=== PATIENT | male | born 1995 | race African-American/Black ===

== ENCOUNTER 2021-01-04 04:49 | Inpatient (IN) | payer SELFPAY ==
[2021-01-04] MEDS ORDERED: Propofol 1,000 MG/100 ML VIAL IV ONE (04:53)
[2021-01-04 05:31] LABS: Actual Bicarbonate (HCO3a) 19.2 mEq/L (22-28); Analyzer IN Cardio ER; Base Excess (BEa) -4.9 mEq/L (-2.0 to +3.0); CO2 Tension 33.2 mmHg (35.0-45.0); Calcium, Ionized (arterial) 1.13 mmol/L (1.12-1.30); Hemoglobin (Hb) 13.4 g/dL (14.0-18.0); O2 Tension (PaO2), arterial 102.3 mmHg (80.0-100.0); Potassium - ABG Lab 3.48 mmol/L (3.70-5.30); Puncture Site LRA; pH, Arterial 7.38 (7.35-7.45)
[2021-01-04] MEDS ORDERED: Dextrose 50% Abboject 50 ML SYRINGE SLOW IVP PRN (05:35)
[2021-01-04] MEDS ORDERED: fentaNYL Citrate/PF 2,000 MCG in Sodium Chloride 0.9% 60 ML IV PRN (05:35)
[2021-01-04] MEDS ORDERED: Dextrose 5% in Water 1,000 ML IV PRN (05:35)
[2021-01-04] MEDS ORDERED: Ondansetron PF 4 MG/2 ML Vial IVP PRN (05:35)
[2021-01-04] MEDS ORDERED: Fentanyl CADD 100 ML IV SCH (05:45)
[2021-01-04] MEDS ORDERED: Midazolam HCl 5 mg/ml Vial ONE (06:00)
[2021-01-04] MEDS ORDERED: Lorazepam 2 MG/ML VIAL ONE ×2 (06:06→07:33)
[2021-01-04 06:22] LABS: #Basophils 0.1 thou/uL (0.0-0.2); #Eosinphils 0.1 thou/uL (0.0-0.7); #Lymphocytes 3.8 thou/uL (1.20-3.40); #Monocytes 0.6 thou/uL (0.11-0.59); #Neutrophils 4.1 thou/uL (1.40-6.50); %Basophils 0.7 % (0.0-1.0); %Eosinophils 0.8 % (0.0-10.0); %Monocytes 7.1 % (0.0-10.0); %Neutrophils 47.4 % (42.0-75.0); Hemoglobin 13.3 g/dL (14.0-18.0); Mean Corpuscular HGB CONC 32.5 g/dL (32.0-36.0); Mean Corpuscular Hemoglobin 28.7 pg (27.0-31.0); Mean Corpuscular Volume 88.4 fL (78.0-98.0); Platelet Count 207 thou/uL (130-400); RBC Distribution Width 12.2 % (11.5-14.5); Red Blood Cell (RBC) Count 4.62 mill/uL (4.70-6.10); White Blood Cell (WBC) Count 8.7 thou/uL (4.8-10.8)
[2021-01-04 06:28] LABS: INR-International Normal Ratio 1.1; PTT 27.8 sec (22.9-36.1); Prothrombin Time 14.3 sec (12.0-14.7)
[2021-01-04 06:46] LABS: ALT (SGPT) 15 U/L (8-55); AST (SGOT) 23 U/L (5-34); Albumin 3.8 g/dL (3.5-5.0); Alkaline Phosphatase 52 U/L (40-110); Anion Gap 17 mmol/L (10-20); BUN (Urea Nitrogen) 9 mg/dL (8.9-20.6); Bilirubin, Total 0.3 mg/dL (0.2-1.2); Calc. Creatinine Clearance 0 mL/min (70-130); Calcium 7.9 mg/dL (7.8-10.44); Carbon Dioxide 19 mmol/L (22-29); Chloride 111 mmol/L (98-107); Globulin 2.5 g/dL (2.4-3.5); Glucose 78 mg/dL (70-105); Potassium 3.5 mmol/L (3.5-5.1); Protein, Total 6.3 g/dL (6.0-8.3); Sodium 143 mmol/L (136-145)
[2021-01-04] MEDS: Ampicillin/Sulbactam 3 GM in Sodium Chloride 0.9% 100 ML IVPB SCH ×3 (08:03→19:32)
[2021-01-04 08:20] LABS: Phosphorus 3.3 mg/dL (2.3-4.7)
[2021-01-04 08:43] LABS: Lactic Acid 3.7 mmol/L (0.5-2.2)
[2021-01-04] MEDS: Famotidine/PF 20 mg/2ml Vial SLOW IVP SCH (09:09)
[2021-01-04] MEDS: Propofol 1,000 MG/100 ML VIAL IV PRN ×4 (09:10→23:49)
[2021-01-04] MEDS ORDERED: Fentanyl 100 MCG/2 ML VIAL ONE (09:26)
[2021-01-04] MEDS ORDERED: Vecuronium 10 MG VIAL ONE (09:27)
[2021-01-04] MEDS ORDERED: Lidocaine 1% w/Epinephrine 1:100K 20 ML VIAL ONE (09:27)
[2021-01-04] MEDS ORDERED: Vecuronium 10 MG VIAL IV SCH (09:45)
[2021-01-04] MEDS ORDERED: Midazolam HCl 2 mg/2 ml Vial FS SCH (09:45)
[2021-01-04] MEDS ORDERED: Fentanyl 100 MCG/2 ML VIAL SLOW IVP SCH (09:45)
[2021-01-04] MEDS ORDERED: Lidocaine 1% w/Epinephrine 1:100K 20 ML VIAL FS SCH (09:45)
[2021-01-04] MEDS: Midazolam HCl 2 mg/2 ml Vial ONE ×2 (10:05→10:24)
[2021-01-04] MEDS ORDERED: carBAMazepine 200 MG TAB PER TUBE SCH (11:00)
[2021-01-04] MEDS ORDERED: Oxymetazoline HCl 0.05% (30 ML BOT) NS SCH (11:15)
[2021-01-04] MEDS ORDERED: Lactated Ringer's 500 ML IV SCH (14:45)
[2021-01-04] MEDS: Lactated Ringer's 1,000 ML IV SCH ×3 (14:57→23:39)
[2021-01-04] MEDS: Lorazepam 2 MG/ML VIAL SLOW IVP PRN ×2 (16:56→22:47)
[2021-01-04] MEDS: carBAMazepine 200 MG TAB PER TUBE SCH (17:28)
[2021-01-04] MEDS: Oxymetazoline HCl 0.05% (30 ML BOT) NS SCH (20:01)
[2021-01-04 20:21] LABS: #Basophils 0.1 thou/uL (0.0-0.2); #Eosinphils 0.2 thou/uL (0.0-0.7); #Lymphocytes 2.1 thou/uL (1.20-3.40); #Monocytes 0.5 thou/uL (0.11-0.59); %Basophils 1.1 % (0.0-1.0); %Eosinophils 2.8 % (0.0-10.0); %Lymphocytes 30.6 % (21.0-51.0); %Monocytes 7.7 % (0.0-10.0); %Neutrophils 57.8 % (42.0-75.0); Hemoglobin 12.7 g/dL (14.0-18.0); Mean Corpuscular HGB CONC 33.7 g/dL (32.0-36.0); Mean Corpuscular Hemoglobin 29.9 pg (27.0-31.0); Mean Corpuscular Volume 88.7 fL (78.0-98.0); Mean Platelet Volume 6.8 fL (7.4-10.4); Platelet Count 182 thou/uL (130-400); RBC Distribution Width 12.4 % (11.5-14.5); Red Blood Cell (RBC) Count 4.25 mill/uL (4.70-6.10); White Blood Cell (WBC) Count 6.9 thou/uL (4.8-10.8)
[2021-01-04] MEDS ORDERED: Propofol BOLUS 1,000 MG/100 ML VIAL IV PRN (20:30)
[2021-01-04 20:37] LABS: Lactic Acid 1.4 mmol/L (0.5-2.2)
[2021-01-04 20:39] LABS: Phosphorus 2.7 mg/dL (2.3-4.7)
[2021-01-04 20:42] LABS: Anion Gap 13 mmol/L (10-20); BUN (Urea Nitrogen) 6 mg/dL (8.9-20.6); Calc. Creatinine Clearance 232 mL/min (70-130); Calcium 7.9 mg/dL (7.8-10.44); Carbon Dioxide 21 mmol/L (22-29); Chloride 112 mmol/L (98-107); Glucose 86 mg/dL (70-105); Magnesium 2.1 mg/dL (1.6-2.6); Potassium 3.8 mmol/L (3.5-5.1); Sodium 142 mmol/L (136-145)
[2021-01-04] MEDS ORDERED: Potassium Phosphate 30 MMOL in Sodium Chloride 0.9% 500 ML IVPB SCH (22:00)
[2021-01-05] MEDS ORDERED: Fentanyl CADD 100 ML ONE (00:30)
[2021-01-05] MEDS: Ampicillin/Sulbactam 3 GM in Sodium Chloride 0.9% 100 ML IVPB SCH ×4 (03:14→20:32)
[2021-01-05 03:56] LABS: #Basophils 0.1 thou/uL (0.0-0.2); #Eosinphils 0.2 thou/uL (0.0-0.7); #Lymphocytes 2.4 thou/uL (1.20-3.40); #Monocytes 0.6 thou/uL (0.11-0.59); #Neutrophils 3.6 thou/uL (1.40-6.50); %Basophils 0.9 % (0.0-1.0); %Eosinophils 3.6 % (0.0-10.0); %Lymphocytes 34.8 % (21.0-51.0); %Monocytes 8.2 % (0.0-10.0); %Neutrophils 52.5 % (42.0-75.0); Hemoglobin 12.6 g/dL (14.0-18.0); Mean Corpuscular HGB CONC 33.1 g/dL (32.0-36.0); Mean Corpuscular Hemoglobin 29.5 pg (27.0-31.0); Mean Corpuscular Volume 89.2 fL (78.0-98.0); Mean Platelet Volume 7.1 fL (7.4-10.4); Platelet Count 188 thou/uL (130-400); RBC Distribution Width 12.5 % (11.5-14.5); Red Blood Cell (RBC) Count 4.26 mill/uL (4.70-6.10); White Blood Cell (WBC) Count 6.8 thou/uL (4.8-10.8)
[2021-01-05 04:07] LABS: Lactic Acid 0.9 mmol/L (0.5-2.2)
[2021-01-05 04:10] LABS: ALT (SGPT) 12 U/L (8-55); AST (SGOT) 18 U/L (5-34); Albumin 3.3 g/dL (3.5-5.0); Alkaline Phosphatase 52 U/L (40-110); Anion Gap 13 mmol/L (10-20); BUN (Urea Nitrogen) 6 mg/dL (8.9-20.6); Bilirubin, Total 0.3 mg/dL (0.2-1.2); Calc. Creatinine Clearance 249 mL/min (70-130); Carbon Dioxide 23 mmol/L (22-29); Chloride 111 mmol/L (98-107); Globulin 2.3 g/dL (2.4-3.5); Glucose 84 mg/dL (70-105); Magnesium 2.1 mg/dL (1.6-2.6); Phosphorus 5.5 mg/dL (2.3-4.7); Potassium 3.9 mmol/L (3.5-5.1); Protein, Total 5.6 g/dL (6.0-8.3); Sodium 143 mmol/L (136-145)
[2021-01-05] MEDS: Lactated Ringer's 1,000 ML IV SCH ×2 (05:51→17:30)
[2021-01-05 06:49] LABS: Actual Bicarbonate (HCO3a) 24.6 mEq/L (22-28); Base Excess (BEa) -1.2 mEq/L (-2.0 to +3.0); CO2 Tension 45.3 mmHg (35.0-45.0); Calcium, Ionized (arterial) 1.17 mmol/L (1.12-1.30); Carboxyhemoglobin (COHb) 0.4 gm% (0.0-3.0); O2 Tension (PaO2), arterial 61.7 mmHg (80.0-100.0); Potassium - ABG Lab 3.71 mmol/L (3.70-5.30); Puncture Site RRA; pH, Arterial 7.35 (7.35-7.45)
[2021-01-05 06:50] LABS: ALV-art Gradient 131.225 mmHg (0-20)
[2021-01-05] MEDS: Famotidine/PF 20 mg/2ml Vial SLOW IVP SCH (07:13)
[2021-01-05] MEDS: carBAMazepine 200 MG TAB PER TUBE SCH ×2 (07:14→16:29)
[2021-01-05] MEDS: Oxymetazoline HCl 0.05% (30 ML BOT) NS SCH ×2 (07:16→20:37)
[2021-01-05] MEDS: Propofol 1,000 MG/100 ML VIAL IV PRN ×2 (08:07→11:10)
[2021-01-06] MEDS: Ampicillin/Sulbactam 3 GM in Sodium Chloride 0.9% 100 ML IVPB SCH ×2 (01:45→08:39)
[2021-01-06] MEDS: Lactated Ringer's 1,000 ML IV SCH (03:04)
[2021-01-06 03:47] LABS: #Basophils 0.1 thou/uL (0.0-0.2); #Eosinphils 0.2 thou/uL (0.0-0.7); #Lymphocytes 2.7 thou/uL (1.20-3.40); #Monocytes 0.7 thou/uL (0.11-0.59); #Neutrophils 5.1 thou/uL (1.40-6.50); %Basophils 0.8 % (0.0-1.0); %Eosinophils 2.6 % (0.0-10.0); %Lymphocytes 31.1 % (21.0-51.0); %Monocytes 7.7 % (0.0-10.0); %Neutrophils 57.8 % (42.0-75.0); Hemoglobin 12.7 g/dL (14.0-18.0); Mean Corpuscular Hemoglobin 29.3 pg (27.0-31.0); Mean Corpuscular Volume 88.7 fL (78.0-98.0); Mean Platelet Volume 7.2 fL (7.4-10.4); Platelet Count 221 thou/uL (130-400); RBC Distribution Width 12.4 % (11.5-14.5); Red Blood Cell (RBC) Count 4.33 mill/uL (4.70-6.10); White Blood Cell (WBC) Count 8.7 thou/uL (4.8-10.8)
[2021-01-06] MEDS: carBAMazepine 200 MG TAB PER TUBE SCH ×2 (08:40→17:56)
[2021-01-06] MEDS: Famotidine/PF 20 mg/2ml Vial SLOW IVP SCH (08:40)
[2021-01-06] MEDS: Oxymetazoline HCl 0.05% (30 ML BOT) NS SCH ×2 (09:01→20:07)
[2021-01-06] MEDS ORDERED: Ibuprofen 100 MG/5 ML UDCUP PO PRN (11:34)
[2021-01-06] MEDS ORDERED: Enoxaparin Sodium 40 MG/0.4 ML SYRINGE SC SCH (15:54)
[2021-01-06] MEDS ORDERED: Chloraseptic Spray 180 ml Bottle PO PRN (21:17)
[2021-01-07 06:00] LABS: #Eosinphils 0.3 thou/uL (0.0-0.7); #Lymphocytes 2.3 thou/uL (1.20-3.40); #Monocytes 0.7 thou/uL (0.11-0.59); #Neutrophils 3.9 thou/uL (1.40-6.50); %Basophils 0.5 % (0.0-1.0); %Eosinophils 4.8 % (0.0-10.0); %Lymphocytes 31.4 % (21.0-51.0); %Monocytes 9.4 % (0.0-10.0); Hemoglobin 12.9 g/dL (14.0-18.0); Mean Corpuscular HGB CONC 32.8 g/dL (32.0-36.0); Mean Corpuscular Hemoglobin 29.1 pg (27.0-31.0); Mean Corpuscular Volume 88.7 fL (78.0-98.0); Mean Platelet Volume 6.9 fL (7.4-10.4); Platelet Count 242 thou/uL (130-400); RBC Distribution Width 12.2 % (11.5-14.5); Red Blood Cell (RBC) Count 4.43 mill/uL (4.70-6.10); White Blood Cell (WBC) Count 7.2 thou/uL (4.8-10.8)
[2021-01-07] MEDS: Oxymetazoline HCl 0.05% (30 ML BOT) NS SCH ×2 (08:31→21:50)
[2021-01-07] MEDS: carBAMazepine 200 MG TAB PER TUBE SCH ×2 (08:31→16:14)
[2021-01-07] MEDS: Enoxaparin Sodium 40 MG/0.4 ML SYRINGE SC SCH (08:31)
[2021-01-07] MEDS: Acetaminophen 650 MG/20.3 ML UDCUP PO PRN (08:58)
[2021-01-07] MEDS: Dexamethasone 4 mg/ml Vial SLOW IVP SCH ×2 (14:37→21:43)
[2021-01-08] MEDS: Dexamethasone 4 mg/ml Vial SLOW IVP SCH ×4 (04:00→20:21)
[2021-01-08] MEDS: Acetaminophen 650 MG/20.3 ML UDCUP PO PRN ×3 (04:08→23:32)
[2021-01-08] MEDS: carBAMazepine 200 MG TAB PER TUBE SCH ×2 (08:34→16:12)
[2021-01-08] MEDS: Enoxaparin Sodium 40 MG/0.4 ML SYRINGE SC SCH (08:34)
[2021-01-08] MEDS: Oxymetazoline HCl 0.05% (30 ML BOT) NS SCH ×2 (08:35→20:21)
[2021-01-08 13:37] VITALS: BMI 34.4
[2021-01-09] MEDS: Dexamethasone 4 mg/ml Vial SLOW IVP SCH ×2 (05:09→09:02)
[2021-01-09] MEDS: carBAMazepine 200 MG TAB PER TUBE SCH ×2 (09:02→17:48)
[2021-01-09] MEDS: Acetaminophen 650 MG/20.3 ML UDCUP PO PRN (09:03)
[2021-01-09] MEDS: Oxymetazoline HCl 0.05% (30 ML BOT) NS SCH ×2 (09:03→21:03)
[2021-01-09] MEDS: Enoxaparin Sodium 40 MG/0.4 ML SYRINGE SC SCH (09:03)
[2021-01-10] MEDS: Acetaminophen 650 MG/20.3 ML UDCUP PO PRN (01:49)
[2021-01-10] MEDS: Enoxaparin Sodium 40 MG/0.4 ML SYRINGE SC SCH (09:32)
[2021-01-10] MEDS: Oxymetazoline HCl 0.05% (30 ML BOT) NS SCH ×2 (09:32→21:32)
[2021-01-10] MEDS: carBAMazepine 200 MG TAB PER TUBE SCH ×2 (09:32→16:20)
[2021-01-11] MEDS: Enoxaparin Sodium 40 MG/0.4 ML SYRINGE SC SCH (08:19)
[2021-01-11] MEDS: Oxymetazoline HCl 0.05% (30 ML BOT) NS SCH ×2 (08:19→20:08)
[2021-01-11] MEDS: carBAMazepine 200 MG TAB PER TUBE SCH ×2 (08:19→17:05)
[2021-01-11] MEDS: Acetaminophen 650 MG/20.3 ML UDCUP PO PRN (08:22)
[2021-01-12] MEDS: carBAMazepine 200 MG TAB PER TUBE SCH (08:37)
[2021-01-12] MEDS: Enoxaparin Sodium 40 MG/0.4 ML SYRINGE SC SCH (08:37)
[2021-01-12] MEDS: Oxymetazoline HCl 0.05% (30 ML BOT) NS SCH (08:37)
[2021-01-12 12:03] VITALS: BP 135/75; TEMP 97.2
== END 2021-01-12 13:49 | DRG 11 ==
LOC: ERS 04:49 → CCU 05:09 → SURG B 01-06 11:42
PROVIDERS: ADMIT Specialist; ATTEND Specialist
PROC: 0B113F4 Bypass Trachea to Cutaneous with Tracheostomy Device, Percutaneous Approach (ICD-10-PCS; principal; 2021-01-04)
PROC: 5A1945Z Respiratory Ventilation, 24-96 Consecutive Hours (ICD-10-PCS; 2021-01-04)
PROC: 0B9F8ZZ Drainage of Right Lower Lung Lobe, Via Natural or Artificial Opening Endoscopic (ICD-10-PCS; 2021-01-06)
PROC: 0CJS8ZZ Inspection of Larynx, Via Natural or Artificial Opening Endoscopic (ICD-10-PCS; 2021-01-06)
DX: S12.8XXA Fracture of other parts of neck, initial encounter (principal); J96.00 Acute respiratory failure, unspecified whether with hypoxia or hypercapnia; R40.2122 Coma scale, eyes open, to pain, at arrival to emergency department; R40.2342 Coma scale, best motor response, flexion withdrawal, at arrival to emergency department; E87.2 Acidosis; Z20.822 Contact with and (suspected) exposure to COVID-19; F20.9 Schizophrenia, unspecified; F31.9 Bipolar disorder, unspecified; E87.6 Hypokalemia; E83.42 Hypomagnesemia; S10.83XA Contusion of other specified part of neck, initial encounter; G40.909 Epilepsy, unspecified, not intractable, without status epilepticus; Z78.1 Physical restraint status; R13.10 Dysphagia, unspecified
CPT/HCPCS: 31624; 36415; 36416; 36600; 71045; 74018; 80053; 82805; 83605; 83735; 84100; 85025; 87070; 87205; 89220; 94002; 94003; 94640; 96365; 96374; 96376; J0295; J1100; J1650; J2060; J2250; J2704; J3010; J3490; J7030; J7620; S0028

== ENCOUNTER 2021-09-21 23:39 | Emergency (ER) | payer OTHER, SELFPAY | END 2021-09-22 00:40 | LOC: ERS 23:39 | DX: Z02.89 Encounter for other administrative examinations (principal) | CPT/HCPCS: 99283 ==

== ENCOUNTER 2021-10-02 18:53 | Emergency (ER) | payer SELFPAY ==
[2021-10-02 19:35] LABS: #Basophils 0.1 thou/uL (0.0-0.2); #Eosinphils 0.1 thou/uL (0.0-0.7); #Lymphocytes 1.8 thou/uL (1.20-3.40); #Monocytes 0.8 thou/uL (0.11-0.59); #Neutrophils 2.8 thou/uL (1.40-6.50); %Basophils 1.7 % (0.0-1.0); %Eosinophils 1.5 % (0.0-10.0); %Monocytes 13.6 % (0.0-10.0); %Neutrophils 51.1 % (42.0-75.0); Hemoglobin 16.2 g/dL (14.0-18.0); Mean Corpuscular HGB CONC 32.2 g/dL (32.0-36.0); Mean Corpuscular Hemoglobin 27.8 pg (27.0-31.0); Mean Corpuscular Volume 86.2 fL (78.0-98.0); Mean Platelet Volume 6.2 fL (7.4-10.4); Platelet Count 332 thou/uL (130-400); RBC Distribution Width 12.2 % (11.5-14.5); Red Blood Cell (RBC) Count 5.85 mill/uL (4.70-6.10); White Blood Cell (WBC) Count 5.5 thou/uL (4.8-10.8)
[2021-10-02 19:55] LABS: ALT (SGPT) 22 U/L (8-55); AST (SGOT) 27 U/L (5-34); Albumin 4.2 g/dL (3.5-5.0); Alkaline Phosphatase 106 U/L (40-110); Anion Gap 12 mmol/L (10-20); BUN (Urea Nitrogen) 9 mg/dL (8.9-20.6); Bilirubin, Total 0.2 mg/dL (0.2-1.2); Calc. Creatinine Clearance 0 mL/min (70-130); Carbon Dioxide 28 mmol/L (22-29); Chloride 103 mmol/L (98-107); Globulin 3.4 g/dL (2.4-3.5); Glucose 107 mg/dL (70-105); Protein, Total 7.6 g/dL (6.0-8.3); Sodium 139 mmol/L (136-145)
[2021-10-02] MEDS ORDERED: Lorazepam 2 MG/ML VIAL ONE (21:04)
== END 2021-10-02 22:04 ==
LOC: ERS 18:53
DX: R56.9 Unspecified convulsions (principal)
CPT/HCPCS: 80053; 80164; 84146; 85025; 96374; J2060

== ENCOUNTER 2022-03-11 07:32 | Emergency (ER) | payer OTHER, SELFPAY ==
[2022-03-11] MEDS ORDERED: Ibuprofen 200 MG TAB ONE (08:35)
[2022-03-11] MEDS ORDERED: Acetaminophen 500 MG TAB ONE (08:35)
== END 2022-03-11 10:00 | disposition home or self-care (01) ==
LOC: ERS 07:32
DX: S80.211A Abrasion, right knee, initial encounter (principal); S80.212A Abrasion, left knee, initial encounter; S50.312A Abrasion of left elbow, initial encounter; S90.512A Abrasion, left ankle, initial encounter; S00.81XA Abrasion of other part of head, initial encounter; V29.9XXA Motorcycle rider (driver) (passenger) injured in unspecified traffic accident, initial encounter

== ENCOUNTER 2023-06-01 10:44 | Inpatient (IN) | payer OTHER, SELFPAY ==
[~2023-06-01 10:44] MED LIST: Iopamidol-370 76% 500 ML MDV (1 ML CHARGE) ONE
[2023-06-01] MEDS ORDERED: Ketorolac Tromethamine 30 MG/ML VIAL ONE (11:38)
[2023-06-01 12:07] LABS: #Eosinphils 0.1 thou/uL (0.0-0.7); #Monocytes 0.7 thou/uL (0.11-0.59); #Neutrophils 1.9 thou/uL (1.40-6.50); %Basophils 0.9 % (0.0-1.0); %Eosinophils 1.6 % (0.0-10.0); %Lymphocytes 36.4 % (21.0-51.0); %Monocytes 15.9 % (0.0-10.0); Mean Corpuscular Hemoglobin 24.9 pg (27.0-31.0); Mean Corpuscular Volume 77.8 fl (78.0-98.0); Mean Platelet Volume 8.9 fL (7.4-10.4); Platelet Count 257 10x3/uL (130-400); RBC Distribution Width 14.4 % (11.5-14.5); Red Blood Cell (RBC) Count 5.22 mill/uL (4.70-6.10); White Blood Cell (WBC) Count 4.3 10x3/uL (4.8-10.8)
[2023-06-01 12:32] LABS: ALT (SGPT) 15 U/L (8-55); AST (SGOT) 53 U/L (5-34); Albumin 4.2 g/dL (3.5-5.0); Alkaline Phosphatase 175 U/L (40-110); Anion Gap 16 mmol/L (10-20); BUN (Urea Nitrogen) 9 mg/dL (8.9-20.6); Bilirubin, Total 0.5 mg/dL (0.2-1.2); Calc. Creatinine Clearance 0 mL/min (70-130); Calcium 10.3 mg/dL (7.8-10.44); Carbon Dioxide 27 mmol/L (22-29); Chloride 100 mmol/L (98-107); Estimated GFR 124; Globulin 2.6 g/dL (2.4-3.5); Glucose 72 mg/dL (70-105); Lipase 22 U/L (8-78); Potassium 4.2 mmol/L (3.5-5.1); Protein, Total 6.8 g/dL (6.0-8.3); Sodium 139 mmol/L (136-145)
[2023-06-01 12:53] LABS: Bacteria/HPF None Seen HPF (None Seen); Bilirubin Negative (Negative); Blood, Urine Negative (Negative); CAUTI Indications for Culture Pelvic or flank pain; Clarity Clear (Clear); Glucose, Urine (Dipstick) Normal (Negative); Ketone, Urine Negative (Negative); Leukocyte Negative Leu/uL (Negative); Nitrite Negative (Negative); Protein, Urine (Dipstick) Negative (Neg-Trace); RBC/HPF 0-3 HPF (0-3); Squamous Epithelial None Seen HPF (0-3); Urobilinogen Normal mg/dL (Less than 2); WBC/HPF 0-3 HPF (0-3)
[2023-06-01 12:55] LABS: Urine Culture Reflex No No
[2023-06-01] MEDS ORDERED: Ondansetron PF 4 MG/2 ML Vial IVP PRN (14:15)
[2023-06-01] MEDS ORDERED: Acetaminophen 325 MG TAB PO PRN (14:15)
[2023-06-01] MEDS ORDERED: HYDROcodone/Acetaminophen 5/325 mg Tablet PO PRN ×2 (14:15)
[2023-06-01] MEDS ORDERED: Bisacodyl 5 MG TAB PO PRN (14:15)
[2023-06-01 20:31] VITALS: BMI 28.3
[2023-06-02 06:39] LABS: #Eosinphils 0.1 thou/uL (0.0-0.7); #Monocytes 0.5 thou/uL (0.11-0.59); #Neutrophils 1.3 thou/uL (1.40-6.50); %Basophils 1.1 % (0.0-1.0); %Eosinophils 2.2 % (0.0-10.0); %Lymphocytes 46.5 % (21.0-51.0); %Monocytes 14.8 % (0.0-10.0); %Neutrophils 35.1 % (42.0-75.0); Hemoglobin 12.8 g/dL (14.0-18.0); Mean Corpuscular HGB CONC 31.8 g/dL (32.0-36.0); Mean Corpuscular Hemoglobin 24.8 pg (27.0-31.0); Mean Corpuscular Volume 78.1 fl (78.0-98.0); Mean Platelet Volume 8.9 fL (7.4-10.4); Platelet Count 240 10x3/uL (130-400); RBC Distribution Width 14.3 % (11.5-14.5); Red Blood Cell (RBC) Count 5.16 mill/uL (4.70-6.10); White Blood Cell (WBC) Count 3.6 10x3/uL (4.8-10.8)
[2023-06-02 07:03] LABS: Anion Gap 13 mmol/L (10-20); BUN (Urea Nitrogen) 11 mg/dL (8.9-20.6); Calc. Creatinine Clearance 179 mL/min (70-130); Calcium 9.5 mg/dL (7.8-10.44); Carbon Dioxide 29 mmol/L (22-29); Chloride 100 mmol/L (98-107); Estimated GFR 125; Glucose 69 mg/dL (70-105); Sodium 138 mmol/L (136-145)
[2023-06-03] MEDS ORDERED: Lidocaine 1% PF 5 ML VIAL ONE (09:09)
[2023-06-03] MEDS ORDERED: Sodium Bicarbonate 2.5 MEQ/5 ML VIAL ONE (09:09)
[2023-06-04 12:10] VITALS: BP 125/84
[2023-06-04 15:31] VITALS: TEMP 98.9
== END 2023-06-04 16:07 | DRG 425 ==
LOC: ERS 10:44 → EEVIPCON 10:44 → ERHOLD 13:15 → T4-A 18:52
PROVIDERS: ADMIT Internal Medicine; ATTEND Internal Medicine
PROC: 07BC3ZX Excision of Pelvis Lymphatic, Percutaneous Approach, Diagnostic (ICD-10-PCS; principal; 2023-06-03)
DX: K76.9 Liver disease, unspecified (principal); Z88.8 Allergy status to other drugs, medicaments and biological substances; Z79.899 Other long term (current) drug therapy; G40.909 Epilepsy, unspecified, not intractable, without status epilepticus; F41.9 Anxiety disorder, unspecified; F31.9 Bipolar disorder, unspecified; F19.10 Other psychoactive substance abuse, uncomplicated; R59.1 Generalized enlarged lymph nodes
CPT/HCPCS: 36415; 49180; 71045; 74177; 77012; 80048; 80053; 81001; 82105; 83615; 83690; 84550; 85025; 88184; 96374; J1885; Q9967

== ENCOUNTER 2024-09-11 10:58 | Emergency (ER) | payer OTHER, SELFPAY ==
[~2024-09-11 10:58] MED LIST changes: +GASTROGRAFIN 30 ML BOT ONE; +Iopamidol 370 76% 100 ML VIAL ONE; -Iopamidol-370 76% 500 ML MDV (1 ML CHARGE) ONE
[2024-09-11 14:22] LABS: #Basophils 0.03 10x3/uL (0.0-0.2); %Basophils 0.5 % (0.0-1.0); %Eosinophils 0.8 % (0.0-10.0); %Monocytes 11.4 % (0.0-10.0); %Neutrophils 67.7 % (42.0-75.0); Hematocrit 39.7 % (42.0-52.0); Hemoglobin 12.3 g/dL (14.0-18.0); Mean Corpuscular Hemoglobin 25.1 pg (27.0-31.0); Mean Platelet Volume 8.1 fL (7.4-10.4); Platelet Count 439 10x3/uL (130-400); RBC Distribution Width 14.4 % (11.5-14.5)
[2024-09-11 14:32] LABS: Lactic Acid 3.08 mmol/L (0.5-2.2)
[2024-09-11 14:38] LABS: ALT (SGPT) 11 U/L (8-55); AST (SGOT) 37 U/L (5-34); Albumin 2.5 g/dL (3.5-5.0); Alkaline Phosphatase 143 U/L (40-110); Anion Gap 14 mmol/L (10-20); BUN (Urea Nitrogen) 7 mg/dL (8.9-20.6); Bilirubin, Total 0.4 mg/dL (0.2-1.2); Calc. Creatinine Clearance 0 mL/min (70-130); Calcium 8.6 mg/dL (7.8-10.44); Carbon Dioxide 32 mmol/L (22-29); Chloride 96 mmol/L (98-107); Estimated GFR 136; Globulin 3.7 g/dL (2.4-3.5); Glucose 95 mg/dL (70-105); Lipase 22 U/L (8-78); Potassium 3.1 mmol/L (3.5-5.1); Protein, Total 6.2 g/dL (6.0-8.3); Sodium 139 mmol/L (136-145)
[2024-09-11 14:40] LABS: Bacteria/HPF None Seen HPF (None Seen); Bilirubin Negative (Negative); Blood, Urine Negative (Negative); CAUTI Indications for Culture Dysuria,urgency,freq; Clarity Clear (Clear); Glucose, Urine (Dipstick) Normal (Negative); Ketone, Urine Negative (Negative); Leukocyte Negative Leu/uL (Negative); Nitrite Negative (Negative); Protein, Urine (Dipstick) Negative (Neg-Trace); RBC/HPF None Seen HPF (0-3); Specific Gravity, Urine 1.025 (1.002-1.036); Squamous Epithelial None Seen HPF (0-3); Urobilinogen Normal mg/dL (Less than 2); WBC/HPF 0-3 HPF (0-3)
[2024-09-11 14:42] LABS: Urine Culture Reflex No No
[2024-09-11] MEDS ORDERED: Piperacillin/Tazobactam 4.5 GM VIAL ONE (15:20)
[2024-09-11] MEDS ORDERED: Sodium Chloride 0.9% 100 ML ONE (15:20)
[2024-09-11] MEDS ORDERED: Potassium Bicarbonate/Cit Ac 20 MEQ TAB ONE (15:42)
[2024-09-11 16:20] LABS: Troponin I Less than 0.010 ng/mL (< 0.028)
[2024-09-11 22:30] LABS: Lactic Acid 2.05 mmol/L (0.5-2.2)
== END 2024-09-11 23:16 | disposition short-term general hospital (02) ==
LOC: ERS 10:58
DX: R19.00 Intra-abdominal and pelvic swelling, mass and lump, unspecified site (principal); E87.20 Acidosis, unspecified; E87.6 Hypokalemia; F17.210 Nicotine dependence, cigarettes, uncomplicated; Z55.6 Problems related to health literacy
CPT/HCPCS: 36415; 74177; 80053; 83605; 83690; 83735; 84484; 87040; 87086; 96374; J2543; Q9963; Q9967

== ENCOUNTER 2024-10-04 20:59 | Emergency (ER) | payer OTHER ==
[2024-10-04] MEDS ORDERED: HYDROmorphone 0.5 MG/0.5 ML SYRINGE ONE (21:27)
[2024-10-04] MEDS ORDERED: Acetaminophen 500 MG TAB ONE (21:40)
[2024-10-04] MEDS ORDERED: Sodium Chloride 0.9% 100 ML ONE (21:43)
[2024-10-04] MEDS ORDERED: Piperacillin/Tazobactam 4.5 GM VIAL ONE (21:43)
[2024-10-04 21:57] LABS: #Basophils Less than 0.03 10x3/uL (0.0-0.2); %Basophils 0.2 % (0.0-1.0); %Eosinophils 1.4 % (0.0-10.0); %Neutrophils 73.2 % (42.0-75.0); Hematocrit 21.3 % (42.0-52.0); Hemoglobin 6.7 g/dL (14.0-18.0); Mean Corpuscular HGB CONC 31.5 g/dL (32.0-36.0); Mean Corpuscular Hemoglobin 25.4 pg (27.0-31.0); Mean Corpuscular Volume 80.7 fL (78.0-98.0); Mean Platelet Volume 8.9 fL (7.4-10.4); Platelet Count 249 10x3/uL (130-400); RBC Distribution Width 17.5 % (11.5-14.5); Red Blood Cell (RBC) Count 2.64 mill/uL (4.70-6.10)
[2024-10-04] MEDS ORDERED: Vancomycin (BATCH) 2 GM in Premix 1 BAG IVPB SCH (22:00)
[2024-10-04 22:22] LABS: ALT (SGPT) 38 U/L (8-55); AST (SGOT) 45 U/L (5-34); Albumin 2.6 g/dL (3.5-5.0); Alkaline Phosphatase 152 U/L (40-110); Anion Gap 16 mmol/L (10-20); BUN (Urea Nitrogen) 18 mg/dL (8.9-20.6); Bilirubin, Total 0.3 mg/dL (0.2-1.2); Calc. Creatinine Clearance 0 mL/min (70-130); Calcium 8.9 mg/dL (7.8-10.44); Carbon Dioxide 26 mmol/L (22-29); Chloride 100 mmol/L (98-107); Estimated GFR 119; Globulin 2.9 g/dL (2.4-3.5); Glucose 104 mg/dL (70-105); Lipase 18 U/L (8-78); Potassium 3.9 mmol/L (3.5-5.1); Protein, Total 5.5 g/dL (6.0-8.3); Sodium 138 mmol/L (136-145)
[2024-10-04 22:25] LABS: Troponin I Less than 0.010 ng/mL (< 0.028)
[2024-10-04 22:45] LABS: Bacteria/HPF None Seen HPF (None Seen); Bilirubin Negative (Negative); Blood, Urine Negative (Negative); CAUTI Indications for Culture Pelvic or flank pain; Clarity Clear (Clear); Glucose, Urine (Dipstick) Normal (Negative); Ketone, Urine Negative (Negative); Leukocyte Negative Leu/uL (Negative); Nitrite Negative (Negative); Protein, Urine (Dipstick) Negative (Neg-Trace); RBC/HPF 0-3 HPF (0-3); Squamous Epithelial None Seen HPF (0-3); Urobilinogen Normal mg/dL (Less than 2); WBC/HPF 0-3 HPF (0-3); pH, Urine 7.5 (5.0-9.0)
[2024-10-04 22:47] LABS: Urine Culture Reflex No No
[2024-10-05] MEDS ORDERED: HYDROmorphone 0.5 MG/0.5 ML SYRINGE ONE ×2 (01:23→05:14)
[2024-10-05] MEDS ORDERED: Ondansetron PF 4 MG/2 ML Vial ONE (01:23)
[2024-10-05] MEDS ORDERED: Metoclopramide HCl 10 MG (2 mL) VIAL ONE (02:46)
== END 2024-10-05 05:23 | disposition short-term general hospital (02) ==
LOC: ERS 20:59
DX: A41.9 Sepsis, unspecified organism (principal); R19.09 Other intra-abdominal and pelvic swelling, mass and lump; D64.9 Anemia, unspecified; F17.210 Nicotine dependence, cigarettes, uncomplicated
CPT/HCPCS: 36415; 36416; 71045; 74177; 80053; 81001; 83605; 83690; 84484; 85025; 87040; 87086; 87428; 93005; 94760; 96365; 96366; 96367; 96375; 96376; J2405; J2543; J2765; J3370

== ENCOUNTER 2024-11-16 20:43 | Inpatient (IN) | payer OTHER ==
[~2024-11-16 20:43] MED LIST changes: -GASTROGRAFIN 30 ML BOT ONE; -Iopamidol 370 76% 100 ML VIAL ONE; +Iopamidol-370 76% 500 ML MDV (1 ML CHARGE) ONE
[2024-11-16] MEDS ORDERED: Cefepime 2 GM VIAL ONE (21:17)
[2024-11-16] MEDS ORDERED: Sodium Chloride 0.9% 100 ML ONE (21:17)
[2024-11-16 21:52] LABS: ALT (SGPT) 10 U/L (8-55); AST (SGOT) 25 U/L (5-34); Albumin 2.5 g/dL (3.5-5.0); Alkaline Phosphatase 125 U/L (40-110); Anion Gap 14 mmol/L (10-20); BUN (Urea Nitrogen) 8 mg/dL (8.9-20.6); Bilirubin, Total 0.3 mg/dL (0.2-1.2); Calc. Creatinine Clearance 0 mL/min (70-130); Calcium 8.8 mg/dL (7.8-10.44); Carbon Dioxide 26 mmol/L (22-29); Chloride 101 mmol/L (98-107); Estimated GFR 133; Globulin 3.7 g/dL (2.4-3.5); Glucose 93 mg/dL (70-105); Potassium 3.7 mmol/L (3.5-5.1); Protein, Total 6.2 g/dL (6.0-8.3); Sodium 137 mmol/L (136-145)
[2024-11-16 21:54] LABS: Hematocrit 30.3 % (42.0-52.0); Hemoglobin 9.1 g/dL (14.0-18.0); Mean Corpuscular Hemoglobin 21.2 pg (27.0-31.0); Mean Corpuscular Volume 70.5 fL (78.0-98.0); Mean Platelet Volume 8.4 fL (7.4-10.4); Platelet Count 443 10x3/uL (130-400); RBC Distribution Width 17.7 % (11.5-14.5)
[2024-11-16 21:55] LABS: Troponin I Less than 0.010 ng/mL (< 0.028)
[2024-11-16 22:05] LABS: Anisocytosis SLIGHT = 6-15 cells HPF (0-5); Hypochromia SLIGHT = 6-15 cells HPF (0-5); Microcytosis SLIGHT = 6-15 cells HPF (0-5); Platelet Adequacy Comment Platelets Increased; Polychromasia SLIGHT = 2-3 cells HPF (0-2); Target Cells SLIGHT = 2-5 cells HPF (0-1)
[2024-11-16 22:17] LABS: #Basophils Less than 0.03 10x3/uL (0.0-0.2); %Basophils 0.2 % (0.0-1.0); %Eosinophils 0.7 % (0.0-10.0); %Lymphocytes 12.7 % (21.0-51.0); %Monocytes 12.6 % (0.0-10.0); %Neutrophils 73.2 % (42.0-75.0)
[2024-11-17] MEDS ORDERED: Ondansetron ODT 4 MG TAB PO PRN (00:33)
[2024-11-17] MEDS ORDERED: Benzonatate 100 MG CAP PO PRN (01:00)
[2024-11-17] MEDS: Lactated Ringer's 1,000 ML IV SCH (01:38)
[2024-11-17] MEDS: Azithromycin 500 MG in Sodium Chloride 0.9% 250 ML 250 ML IVPB SCH ×2 (01:38→23:46)
[2024-11-17] MEDS: Acetaminophen 325 MG TAB PO PRN (01:46)
[2024-11-17] MEDS: Ketorolac Tromethamine 30 MG (1 mL) VIAL IVP PRN (01:46)
[2024-11-17 02:22] VITALS: BMI 26.9
[2024-11-17 04:51] LABS: #Basophils 0.03 10x3/uL (0.0-0.2); %Basophils 0.4 % (0.0-1.0); %Eosinophils 1.8 % (0.0-10.0); %Lymphocytes 15.8 % (21.0-51.0); %Monocytes 15.6 % (0.0-10.0); %Neutrophils 65.7 % (42.0-75.0); Hematocrit 24.7 % (42.0-52.0); Hemoglobin 7.2 g/dL (14.0-18.0); Mean Corpuscular HGB CONC 29.1 g/dL (32.0-36.0); Mean Corpuscular Hemoglobin 21.2 pg (27.0-31.0); Mean Corpuscular Volume 72.6 fL (78.0-98.0); Mean Platelet Volume 8.3 fL (7.4-10.4); Platelet Count 369 10x3/uL (130-400); RBC Distribution Width 17.5 % (11.5-14.5)
[2024-11-17 05:12] LABS: Anion Gap 11 mmol/L (10-20); BUN (Urea Nitrogen) 7 mg/dL (8.9-20.6); Calc. Creatinine Clearance 220 mL/min (70-130); Calcium 8.3 mg/dL (7.8-10.44); Carbon Dioxide 24 mmol/L (22-29); Chloride 109 mmol/L (98-107); Estimated GFR 135; Glucose 87 mg/dL (70-105); Potassium 3.6 mmol/L (3.5-5.1); Sodium 140 mmol/L (136-145)
[2024-11-17] MEDS: Cefepime 2 GM in Sodium Chloride 0.9% 100 ML IVPB SCH (05:53)
[2024-11-17] MEDS ORDERED: Cefepime 2 GM in Sodium Chloride 0.9% 100 ML IVPB SCH (09:00)
[2024-11-17] MEDS: Enoxaparin 40 MG (0.4 mL) SYRINGE SC SCH (09:41)
[2024-11-17 10:43] LABS: Legionella Urinary Ag Negative (Negative); Strep pneumo Urine Ag NEGATIVE (NEGATIVE)
[2024-11-17 11:49] VITALS: BMI 26.9
[2024-11-18] MEDS ORDERED: Azithromycin 250 MG in Sodium Chloride 0.9% 250 ML 250 ML IVPB SCH ×2 (00:45→01:00)
[2024-11-18 05:34] LABS: #Basophils Less than 0.03 10x3/uL (0.0-0.2); %Basophils 0.4 % (0.0-1.0); %Eosinophils 6.4 % (0.0-10.0); %Lymphocytes 17.3 % (21.0-51.0); %Monocytes 12.5 % (0.0-10.0); %Neutrophils 62.9 % (42.0-75.0); Hematocrit 27.1 % (42.0-52.0); Hemoglobin 7.9 g/dL (14.0-18.0); Mean Corpuscular HGB CONC 29.2 g/dL (32.0-36.0); Mean Corpuscular Hemoglobin 20.9 pg (27.0-31.0); Mean Corpuscular Volume 71.7 fL (78.0-98.0); Mean Platelet Volume 8.1 fL (7.4-10.4); Platelet Count 354 10x3/uL (130-400); RBC Distribution Width 17.4 % (11.5-14.5); Red Blood Cell (RBC) Count 3.78 mill/uL (4.70-6.10)
[2024-11-18 05:45] LABS: Anion Gap 11 mmol/L (10-20); BUN (Urea Nitrogen) 6 mg/dL (8.9-20.6); Calc. Creatinine Clearance 261 mL/min (70-130); Calcium 8.4 mg/dL (7.8-10.44); Carbon Dioxide 26 mmol/L (22-29); Chloride 106 mmol/L (98-107); Estimated GFR 142; Glucose 79 mg/dL (70-105); Sodium 139 mmol/L (136-145)
[2024-11-18] MEDS ORDERED: EPINEPHrine 1 MG/ML VIAL ONE (07:09)
[2024-11-18] MEDS ORDERED: Bupivacaine PF 0.5% 30 ML VIAL ONE (07:10)
[2024-11-18] MEDS ORDERED: Lidocaine 2% PF 5 ML VIAL ONE (07:10)
[2024-11-18] MEDS ORDERED: PROPOFOL 20 ML ONE (07:58)
[2024-11-18] MEDS ORDERED: fentaNYL 50 mcg/mL 1 mL Vial ONE (07:58)
[2024-11-18] MEDS ORDERED: PHENYLEPHRINE-NS 100 MCG/ML 10 ML SYRINGE ONE (08:31)
[2024-11-18] MEDS ORDERED: Dexamethasone 4 mg/ml Vial ONE (08:35)
[2024-11-18] MEDS ORDERED: Ondansetron PF 4 MG/2 ML Vial ONE (08:35)
[2024-11-18] MEDS ORDERED: CEFAZOLIN 1 GM VIAL ONE (08:41)
[2024-11-18] MEDS ORDERED: CEFAZOLIN 2 GM in Sodium Chloride 0.9% 100 ML IVPB SCH (11:15)
[2024-11-19 05:17] LABS: #Basophils Less than 0.03 10x3/uL (0.0-0.2); %Basophils 0.1 % (0.0-1.0); %Eosinophils 1.9 % (0.0-10.0); %Lymphocytes 15.9 % (21.0-51.0); %Monocytes 12.3 % (0.0-10.0); %Neutrophils 69.3 % (42.0-75.0); Hematocrit 28.1 % (42.0-52.0); Hemoglobin 8.2 g/dL (14.0-18.0); Mean Corpuscular HGB CONC 29.2 g/dL (32.0-36.0); Mean Corpuscular Hemoglobin 21.2 pg (27.0-31.0); Mean Corpuscular Volume 72.6 fL (78.0-98.0); Mean Platelet Volume 8.7 fL (7.4-10.4); Platelet Count 424 10x3/uL (130-400); RBC Distribution Width 17.3 % (11.5-14.5); Red Blood Cell (RBC) Count 3.87 mill/uL (4.70-6.10)
[2024-11-19 05:28] LABS: Anion Gap 13 mmol/L (10-20); BUN (Urea Nitrogen) 9 mg/dL (8.9-20.6); Calc. Creatinine Clearance 228 mL/min (70-130); Calcium 8.7 mg/dL (7.8-10.44); Carbon Dioxide 25 mmol/L (22-29); Chloride 106 mmol/L (98-107); Estimated GFR 137; Glucose 122 mg/dL (70-105); Potassium 3.8 mmol/L (3.5-5.1); Sodium 140 mmol/L (136-145)
[2024-11-19 08:48] VITALS: BP 115/78; TEMP 98.5
== END 2024-11-19 12:15 | disposition home or self-care (01) | DRG 871 ==
LOC: ERS 20:43 → INTOOBSV 11-17 00:17 → MSONC 11-17 00:17 → T4-B 11-17 18:45 → OBSVTOIN 11-18 09:07
PROVIDERS: ADMIT Family Medicine; ATTEND Family Medicine
PROC: 0JH63WZ Insertion of Totally Implantable Vascular Access Device into Chest Subcutaneous Tissue and Fascia, Percutaneous Approach (ICD-10-PCS; principal; 2024-11-18)
PROC: 02HV33Z Insertion of Infusion Device into Superior Vena Cava, Percutaneous Approach (ICD-10-PCS; 2024-11-18)
PROC: B5181ZA Fluoroscopy of Superior Vena Cava using Low Osmolar Contrast, Guidance (ICD-10-PCS; 2024-11-18)
DX: A41.9 Sepsis, unspecified organism (principal); J12.89 Other viral pneumonia; C81.90 Hodgkin lymphoma, unspecified, unspecified site; R00.0 Tachycardia, unspecified; D64.81 Anemia due to antineoplastic chemotherapy; B97.89 Other viral agents as the cause of diseases classified elsewhere; Z88.8 Allergy status to other drugs, medicaments and biological substances
CPT/HCPCS: 36415; 71045; 71275; 80048; 80053; 83605; 84145; 84484; 85025; 87040; 87428; 87449; 87633; 87899; 93005; 96361; 96365; 96372; 96375; 96376; C1788; G0378; J0171; J0456; J0665; J0690; J0692; J1100; J1642; J1650; J1885; J2405; J2704; J3010; J7050; J7120; Q9967

== ENCOUNTER 2024-12-12 09:01 | Emergency (ER) | payer OTHER ==
[2024-12-12] MEDS ORDERED: Morphine 4 MG/ML VIAL ONE (09:39)
[2024-12-12] MEDS ORDERED: Morphine 2 MG/ML VIAL ONE (09:39)
[2024-12-12] MEDS ORDERED: Ondansetron PF 4 MG/2 ML Vial ONE (09:40)
[2024-12-12 09:56] LABS: #Basophils Less than 0.03 10x3/uL (0.0-0.2); %Basophils 0.3 % (0.0-1.0); %Eosinophils 1.5 % (0.0-10.0); %Lymphocytes 13.6 % (21.0-51.0); %Monocytes 13.1 % (0.0-10.0); %Neutrophils 70.6 % (42.0-75.0); Hematocrit 25.4 % (42.0-52.0); Hemoglobin 7.3 g/dL (14.0-18.0); Mean Corpuscular HGB CONC 28.7 g/dL (32.0-36.0); Mean Corpuscular Hemoglobin 19.2 pg (27.0-31.0); Mean Corpuscular Volume 66.7 fL (78.0-98.0); Mean Platelet Volume 8.3 fL (7.4-10.4); Platelet Count 447 10x3/uL (130-400); RBC Distribution Width 18.5 % (11.5-14.5); Red Blood Cell (RBC) Count 3.81 mill/uL (4.70-6.10)
[2024-12-12 10:21] LABS: ALT (SGPT) 7 U/L (Less than 45); AST (SGOT) 33 U/L (11-34); Albumin 2.7 g/dL (3.1-4.5); Alkaline Phosphatase 135 U/L (40-110); Anion Gap 16 mmol/L (10-20); BUN (Urea Nitrogen) 10 mg/dL (8.9-20.6); Bilirubin, Total 0.2 mg/dL (0.3-1.2); Calc. Creatinine Clearance 0 mL/min (70-130); Carbon Dioxide 25 mmol/L (22-29); Chloride 100 mmol/L (98-107); Estimated GFR 132; Globulin 3.6 g/dL (2.4-3.5); Glucose 87 mg/dL (70-105); Lipase 10 U/L (8-78); Magnesium 2.3 mg/dL (1.6-2.6); Protein, Total 6.3 g/dL (6.0-8.3); Sodium 137 mmol/L (136-145)
[2024-12-12] MEDS ORDERED: Sodium Chloride 0.9% 100 ML ONE (10:36)
[2024-12-12] MEDS ORDERED: Cefepime 2 GM VIAL ONE (10:36)
[2024-12-12] MEDS ORDERED: Iopamidol-370 76% 500 ML MDV (1 ML CHARGE) ONE (11:31)
[2024-12-12] MEDS ORDERED: Ketorolac Tromethamine 30 MG (1 mL) VIAL ONE (11:43)
[2024-12-12] MEDS ORDERED: Vancomycin 1 GM/200 ML (FROZEN) BAG ONE (11:44)
[2024-12-12 12:04] LABS: Bacteria/HPF None Seen HPF (None Seen); Bilirubin Negative (Negative); Blood, Urine Negative (Negative); CAUTI Indications for Culture Pelvic or flank pain; Clarity Clear (Clear); Glucose, Urine (Dipstick) Normal (Negative); Ketone, Urine Negative (Negative); Leukocyte Negative Leu/uL (Negative); Nitrite Negative (Negative); Protein, Urine (Dipstick) Negative (Neg-Trace); RBC/HPF 0-3 HPF (0-3); Specific Gravity, Urine 1.032 (1.002-1.036); Squamous Epithelial None Seen HPF (0-3); Urobilinogen Normal mg/dL (Less than 2); WBC/HPF 0-3 HPF (0-3)
[2024-12-12 12:18] LABS: Urine Culture Reflex No No
[2024-12-12 13:22] LABS: Lactic Acid 1.78 mmol/L (0.50-2.20)
== END 2024-12-12 13:00 | disposition home or self-care (01) ==
LOC: ERS 09:01
DX: R10.9 Unspecified abdominal pain (principal); F17.210 Nicotine dependence, cigarettes, uncomplicated
CPT/HCPCS: 36415; 74177; 80053; 81001; 83605; 83690; 83735; 85025; 87040; 87086; 87149; 96361; 96365; 96367; 96375; J0692; J1885; J2270; J2272; J2405; J3370; Q9967

== ENCOUNTER 2024-12-24 18:25 | Emergency (ER) | payer OTHER ==
[2024-12-24 18:56] LABS: #Basophils Less than 0.03 10x3/uL (0.0-0.2); %Basophils 0.2 % (0.0-1.0); %Eosinophils 0.8 % (0.0-10.0); %Lymphocytes 15.2 % (21.0-51.0); %Neutrophils 71.2 % (42.0-75.0); Hematocrit 17.4 % (42.0-52.0); Hemoglobin 4.8 g/dL (14.0-18.0); Mean Corpuscular HGB CONC 27.6 g/dL (32.0-36.0); Mean Corpuscular Hemoglobin 17.7 pg (27.0-31.0); Mean Corpuscular Volume 64.2 fL (78.0-98.0); Mean Platelet Volume 8.1 fL (7.4-10.4); Platelet Count 465 10x3/uL (130-400); RBC Distribution Width 18.6 % (11.5-14.5); Red Blood Cell (RBC) Count 2.71 mill/uL (4.70-6.10)
[2024-12-24 19:05] LABS: INR-International Normal Ratio 1.1; Prothrombin Time 14.4 sec (12.0-14.7)
[2024-12-24 19:07] LABS: ALT (SGPT) Less than 7 U/L (Less than 45); AST (SGOT) 32 U/L (11-34); Albumin 2.2 g/dL (3.1-4.5); Alkaline Phosphatase 102 U/L (40-110); Anion Gap 14 mmol/L (10-20); BUN (Urea Nitrogen) 6 mg/dL (8.9-20.6); Bilirubin, Total 0.2 mg/dL (0.3-1.2); Calc. Creatinine Clearance 0 mL/min (70-130); Calcium 8.5 mg/dL (7.8-10.44); Carbon Dioxide 25 mmol/L (22-29); Chloride 102 mmol/L (98-107); Estimated GFR 135; Globulin 3.3 g/dL (2.4-3.5); Glucose 90 mg/dL (70-105); Potassium 3.7 mmol/L (3.5-5.1); Protein, Total 5.5 g/dL (6.0-8.3); Sodium 137 mmol/L (136-145)
[2024-12-24 19:11] LABS: Troponin I Less than 0.010 ng/mL (< 0.028)
[2024-12-24 19:18] LABS: Elliptocytes SLIGHT = 2-5 cells HPF (0-1); Hypochromia MODERATE=16-30 cells HPF (0-5); Microcytosis SLIGHT = 6-15 cells HPF (0-5); Platelet Adequacy Comment Platelets Increased; Polychromasia MODERATE = 3-4 cells HPF (0-2)
[2024-12-24] MEDS ORDERED: Morphine 2 MG/ML VIAL ONE (19:29)
[2024-12-24] MEDS ORDERED: Sodium Chloride 0.9% 100 ML ONE (19:29)
[2024-12-24] MEDS ORDERED: Cefepime 2 GM VIAL ONE (19:29)
[2024-12-24] MEDS ORDERED: Ondansetron PF 4 MG/2 ML Vial ONE (19:29)
[2024-12-24] MEDS ORDERED: Vancomycin (BATCH) 2 GM in Premix 1 BAG IVPB SCH (20:15)
[2024-12-24] MEDS ORDERED: Acetaminophen 500 MG TAB ONE (20:23)
[2024-12-24] MEDS ORDERED: HYDROmorphone 0.5 MG/0.5 ML SYRINGE ONE (21:06)
[2024-12-24 21:48] LABS: Bacteria/HPF None Seen HPF (None Seen); Bilirubin Negative (Negative); Blood, Urine Negative (Negative); CAUTI Indications for Culture Fever or rigors; Clarity Clear (Clear); Glucose, Urine (Dipstick) Normal (Negative); Ketone, Urine Negative (Negative); Leukocyte Negative Leu/uL (Negative); Nitrite Negative (Negative); Protein, Urine (Dipstick) Negative (Neg-Trace); RBC/HPF 0-3 HPF (0-3); Specific Gravity, Urine 1.034 (1.002-1.036); Squamous Epithelial 0-3 HPF (0-3); WBC/HPF None Seen HPF (0-3)
[2024-12-24 21:50] LABS: Urine Culture Reflex No No
== END 2024-12-25 00:28 | disposition short-term general hospital (02) ==
LOC: ERS 18:25
DX: A41.9 Sepsis, unspecified organism (principal); D64.9 Anemia, unspecified; C81.90 Hodgkin lymphoma, unspecified, unspecified site; G40.909 Epilepsy, unspecified, not intractable, without status epilepticus; F17.210 Nicotine dependence, cigarettes, uncomplicated; Z55.6 Problems related to health literacy; Z75.3 Unavailability and inaccessibility of health-care facilities
CPT/HCPCS: 36415; 36430; 71045; 74177; 80053; 81001; 83010; 83605; 83615; 83690; 83880; 84484; 85025; 85046; 85610; 85730; 86850; 86900; 86901; 87040; 87428; 93005; 96365; 96366; 96367; 96375; J0692; J1171; J2272; J2405; J3370; P9016; Q9967

== ENCOUNTER 2025-05-11 00:42 | Inpatient (IN) | payer OTHER ==
[2025-05-11] MEDS ORDERED: Cefepime 2 GM VIAL ONE (01:16)
[2025-05-11] MEDS ORDERED: LevoFLOXacin 750 mg/D5W 150 ml Premix Bag ONE (01:16)
[2025-05-11] MEDS ORDERED: VANCOMYCIN 2 GRAM/400 ML BAG ONE (01:16)
[2025-05-11 01:35] LABS: Hematocrit 29.1 % (42.0-52.0); Hemoglobin 8.2 g/dL (14.0-18.0); Mean Corpuscular Hemoglobin 17.5 pg (27.0-31.0); Mean Corpuscular Volume 62.0 fL (78.0-98.0); Platelet Count 500 10x3/uL (130-400); Red Blood Cell (RBC) Count 4.69 mill/uL (4.70-6.10); White Blood Cell (WBC) Count 6.65 10x3/uL (4.8-10.8)
[2025-05-11 01:51] LABS: Lipase 9 U/L (8-78)
[2025-05-11 01:52] LABS: ALT (SGPT) Less than 7 U/L (Less than 45); AST (SGOT) 38 U/L (11-34); Albumin 2.3 g/dL (3.1-4.5); Alkaline Phosphatase 148 U/L (40-110); Anion Gap 15 mmol/L (10-20); BUN (Urea Nitrogen) 5 mg/dL (8.9-20.6); Bilirubin, Total 0.3 mg/dL (0.3-1.2); CK (CPK) Less than 9 U/L (30-200); Calc. Creatinine Clearance 0 mL/min (70-130); Calcium 8.4 mg/dL (7.8-10.44); Carbon Dioxide 24 mmol/L (22-29); Chloride 101 mmol/L (98-107); Globulin 3.3 g/dL (2.4-3.5); Glucose 86 mg/dL (70-105); Potassium 3.3 mmol/L (3.5-5.1); Sodium 137 mmol/L (136-145)
[2025-05-11 01:54] LABS: Acetaminophen Less than 10 mcg/mL (Less than 10); Salicylate Less than 8.0 mg/dL (Less than 8.0)
[2025-05-11 01:56] LABS: Microcytosis MODERATE=15-30 cells HPF (0-5); Platelet Adequacy Comment Platelets Increased; Polychromasia SLIGHT = 2-3 cells HPF (0-2); Smudge Cells 8.7 %; Target Cells SLIGHT = 2-5 cells HPF (0-1)
[2025-05-11 02:10] LABS: Troponin I Less than 0.010 ng/mL (< 0.028)
[2025-05-11] MEDS ORDERED: Ondansetron PF 4 MG/2 ML Vial IVP PRN (02:30)
[2025-05-11 04:46] LABS: Bacteria/HPF None Seen HPF (None Seen); CAUTI Indications for Culture Pelvic or flank pain; Glucose, Urine (Dipstick) Normal (Negative); Leukocyte Negative Leu/uL (Negative); Protein, Urine (Dipstick) Negative (Neg-Trace); RBC/HPF 0-3 HPF (0-3); Specific Gravity, Urine 1.043 (1.002-1.036)
[2025-05-11 04:54] LABS: Cocaine Metabolite Screen Negative (Negative); THC/Cannabinoid Screen Negative (Negative); Tricyclic Screen Negative (Negative); Urine Culture Reflex No No
[2025-05-11] MEDS: VANCOMYCIN 1.75 GM/350 ML Premix BAG IVPB SCH (05:24)
[2025-05-11] MEDS: cefTRIAXone\\ROCEPHIN 2 GM in Sodium Chloride 0.9% 100 ML IVPB SCH (06:06)
[2025-05-11] MEDS: Acetaminophen 325 MG TAB PO PRN ×2 (06:36→15:12)
[2025-05-11] MEDS: Enoxaparin 40 MG (0.4 mL) SYRINGE SC SCH (09:30)
[2025-05-11] MEDS: Pantoprazole 40 MG VIAL IVP SCH (09:31)
[2025-05-11] MEDS: Potassium Chloride 20 MEQ in Premix 1 BAG IVPB SCH (12:40)
[2025-05-11] MEDS ORDERED: Iopamidol-370 76% 500 ML MDV (1 ML CHARGE) ONE (13:38)
[2025-05-11] MEDS: HYDROmorphone 0.5 MG/0.5 ML SYRINGE SLOW IVP SCH (20:20)
[2025-05-12 05:28] LABS: Bacteria/HPF None Seen HPF (None Seen); Glucose, Urine (Dipstick) Normal (Negative); Leukocyte Negative Leu/uL (Negative); Protein, Urine (Dipstick) Negative (Neg-Trace); RBC/HPF 0-3 HPF (0-3); Specific Gravity, Urine 1.001 (1.002-1.036); WBC/HPF 0-3 HPF (0-3)
[2025-05-12] MEDS: Allopurinol 100 MG TAB PO SCH (08:17)
[2025-05-12 11:18] LABS: ALT (SGPT) Less than 7 U/L (Less than 45); AST (SGOT) 25 U/L (11-34); Albumin 1.7 g/dL (3.1-4.5); Alkaline Phosphatase 123 U/L (40-110); Anion Gap 13 mmol/L (10-20); BUN (Urea Nitrogen) Less than 4 mg/dL (8.9-20.6); Bilirubin, Total 0.1 mg/dL (0.3-1.2); Calc. Creatinine Clearance 284 mL/min (70-130); Calcium 7.5 mg/dL (7.8-10.44); Carbon Dioxide 25 mmol/L (22-29); Chloride 102 mmol/L (98-107); Globulin 2.7 g/dL (2.4-3.5); Glucose 90 mg/dL (70-105); Iron 7 ug/dL (65-175); Iron Binding Capacity, Total 160 mcg/dL (261-462); Potassium 3.5 mmol/L (3.5-5.1); Sodium 136 mmol/L (136-145); Uric Acid 2.9 mg/dL (3.7-7.7)
[2025-05-12 11:23] LABS: Hematocrit 23.6 % (42.0-52.0); Hemoglobin 6.8 g/dL (14.0-18.0); Mean Corpuscular Hemoglobin 17.7 pg (27.0-31.0); Mean Corpuscular Volume 61.3 fL (78.0-98.0); Platelet Count 473 10x3/uL (130-400); Red Blood Cell (RBC) Count 3.85 mill/uL (4.70-6.10); White Blood Cell (WBC) Count 5.40 10x3/uL (4.8-10.8)
[2025-05-12 11:40] LABS: #Basophils Less than 0.03 10x3/uL (0.0-0.2); #Eosinophils 0.22 10x3/uL (0.0-0.7); #Monocytes 0.67 10x3/uL (0.11-0.59); #Neutrophils 3.55 10x3/uL (1.40-6.50); %Basophils 0.4 % (0.0-1.0); %Eosinophils 4.1 % (0.0-10.0); %Lymphocytes 12.4 % (21.0-51.0); %Monocytes 12.4 % (0.0-10.0); %Neutrophils 65.7 % (42.0-75.0); Ovalocytes MODERATE= 6-15 cells (100X) (0-1/hpf); Plasma Cells 0 % (0-0); Platelet Adequacy Comment Appears Increased; Schistocytes SLIGHT = 2-5 cells (100X) (0-1/hpf); Target Cells MODERATE= 6-15 cells (100X) (0-1/hpf)
[2025-05-12] MEDS: HYDROmorphone 0.5 MG/0.5 ML SYRINGE SLOW IVP SCH (12:15)
[2025-05-12] MEDS: HYDROmorphone HCl/0.9% NaCl/PF 30 ML IV SCH (12:46)
[2025-05-12] MEDS: Ketorolac Tromethamine 30 MG (1 mL) VIAL IVP SCH (13:01)
[2025-05-12] MEDS: Sodium Ferric Gluconate 250 MG in Sodium Chloride 0.9% 250 ML 250 ML IVPB SCH (14:45)
[2025-05-12 21:34] LABS: Hematocrit 26.6 % (42.0-52.0); Hemoglobin 7.8 g/dL (14.0-18.0)
[2025-05-13 06:33] LABS: Hematocrit 26.5 % (42.0-52.0); Hemoglobin 7.9 g/dL (14.0-18.0); Mean Corpuscular Hemoglobin 18.9 pg (27.0-31.0); Mean Corpuscular Volume 63.5 fL (78.0-98.0); Platelet Count 448 10x3/uL (130-400); Red Blood Cell (RBC) Count 4.17 mill/uL (4.70-6.10); White Blood Cell (WBC) Count 5.56 10x3/uL (4.8-10.8)
[2025-05-13 06:44] LABS: ALT (SGPT) Less than 7 U/L (Less than 45); AST (SGOT) 18 U/L (11-34); Albumin 1.7 g/dL (3.1-4.5); Alkaline Phosphatase 119 U/L (40-110); Anion Gap 12 mmol/L (10-20); BUN (Urea Nitrogen) Less than 4 mg/dL (8.9-20.6); Bilirubin, Total 0.1 mg/dL (0.3-1.2); Calc. Creatinine Clearance 248 mL/min (70-130); Calcium 7.8 mg/dL (7.8-10.44); Carbon Dioxide 26 mmol/L (22-29); Chloride 103 mmol/L (98-107); Globulin 2.6 g/dL (2.4-3.5); Glucose 112 mg/dL (70-105); Potassium 2.9 mmol/L (3.5-5.1); Sodium 138 mmol/L (136-145)
[2025-05-13 07:00] LABS: Burr Cells SLIGHT = 2-5 cells HPF (0-1); Microcytosis SLIGHT = 6-15 cells HPF (0-5); Platelet Adequacy Comment Platelets Normal; Poikilocytosis SLIGHT = 6-15 cells HPF (0-5); Polychromasia SLIGHT = 2-3 cells HPF (0-2); Smudge Cells 21.9 %; Target Cells SLIGHT = 2-5 cells HPF (0-1)
[2025-05-14 08:24] LABS: Hematocrit 27.4 % (42.0-52.0); Hemoglobin 8.0 g/dL (14.0-18.0); Mean Corpuscular Hemoglobin 19.0 pg (27.0-31.0); Mean Corpuscular Volume 65.1 fL (78.0-98.0); Platelet Count 490 10x3/uL (130-400); Red Blood Cell (RBC) Count 4.21 mill/uL (4.70-6.10); White Blood Cell (WBC) Count 4.10 10x3/uL (4.8-10.8)
[2025-05-14 08:27] LABS: ALT (SGPT) Less than 7 U/L (Less than 45); AST (SGOT) 16 U/L (11-34); Albumin 1.8 g/dL (3.1-4.5); Alkaline Phosphatase 119 U/L (40-110); Anion Gap 13 mmol/L (10-20); BUN (Urea Nitrogen) 5 mg/dL (8.9-20.6); Bilirubin, Total 0.1 mg/dL (0.3-1.2); Calc. Creatinine Clearance 271 mL/min (70-130); Calcium 7.9 mg/dL (7.8-10.44); Carbon Dioxide 26 mmol/L (22-29); Chloride 106 mmol/L (98-107); Globulin 2.7 g/dL (2.4-3.5); Glucose 87 mg/dL (70-105); Potassium 3.4 mmol/L (3.5-5.1); Sodium 142 mmol/L (136-145)
[2025-05-14 08:47] LABS: Anisocytosis MODERATE=16-30 cells HPF (0-5); Burr Cells MARKED = >16 cells HPF (0-1); Macrocytosis SLIGHT = 6-15 cells HPF (0-5); Microcytosis SLIGHT = 6-15 cells HPF (0-5); Platelet Adequacy Comment Platelets Increased; Poikilocytosis MODERATE=16-30 cells HPF (0-5); Polychromasia MODERATE = 3-4 cells HPF (0-2); Schistocytes SLIGHT = 2-5 cells HPF (0-1); Smudge Cells 21.8 %; Target Cells SLIGHT = 2-5 cells HPF (0-1); Toxic Granulation SLIGHT
[2025-05-14] MEDS: HYDROcodone/Acetaminophen 10/325 mg Tablet PO PRN (17:47)
[2025-05-14] MEDS: Mupirocin 1 GM TUBE NASAL DECOLONIZATION TP SCH (23:30)
[2025-05-15 05:37] LABS: Hematocrit 25.8 % (42.0-52.0); Hemoglobin 7.6 g/dL (14.0-18.0); Mean Corpuscular Hemoglobin 18.9 pg (27.0-31.0); Mean Corpuscular Volume 64.0 fL (78.0-98.0); Platelet Count 528 10x3/uL (130-400); Red Blood Cell (RBC) Count 4.03 mill/uL (4.70-6.10); White Blood Cell (WBC) Count 5.22 10x3/uL (4.8-10.8)
[2025-05-15 06:01] LABS: ALT (SGPT) Less than 7 U/L (Less than 45); AST (SGOT) 24 U/L (11-34); Albumin 1.8 g/dL (3.1-4.5); Alkaline Phosphatase 133 U/L (40-110); Anion Gap 11 mmol/L (10-20); BUN (Urea Nitrogen) 7 mg/dL (8.9-20.6); Bilirubin, Total 0.1 mg/dL (0.3-1.2); Calc. Creatinine Clearance 253 mL/min (70-130); Calcium 7.9 mg/dL (7.8-10.44); Carbon Dioxide 27 mmol/L (22-29); Chloride 102 mmol/L (98-107); Globulin 2.7 g/dL (2.4-3.5); Glucose 78 mg/dL (70-105); Potassium 3.8 mmol/L (3.5-5.1); Sodium 136 mmol/L (136-145)
[2025-05-15 06:42] LABS: Microcytosis SLIGHT = 6-15 cells HPF (0-5); Nucleated RBC (Manual Ct) 2 % (0); Platelet Adequacy Comment Platelets Increased; Polychromasia SLIGHT = 2-3 cells HPF (0-2); Smudge Cells 24.8 %
[2025-05-15] MEDS ORDERED: SODIUM CHLORIDE 0.9% IVPB SCH (07:45)
[2025-05-15] MEDS ORDERED: RITUXIMAB ARRX IVPB SCH (07:45)
[2025-05-15] MEDS: HYDROcodone/Acetaminophen 10/325 mg Tablet PO PRN (08:45)
[2025-05-15] MEDS: Pantoprazole 40 MG DR.TAB PO SCH (08:46)
[2025-05-15] MEDS: Mupirocin 1 GM TUBE NASAL DECOLOIZATION TP SCH (08:46)
[2025-05-15] MEDS: Acetaminophen 500 MG TAB PO SCH (10:59)
[2025-05-15] MEDS: diphenhydrAMINE 50 MG/ML VIAL IVP SCH (10:59)
[2025-05-15] MEDS: RITUXIMAB ARRX IVPB SCH (11:02)
[2025-05-15] MEDS: SODIUM CHLORIDE 0.9% IVPB SCH (11:02)
[2025-05-16 05:33] LABS: Hematocrit 32.4 % (42.0-52.0); Hemoglobin 9.5 g/dL (14.0-18.0); Mean Corpuscular Hemoglobin 18.9 pg (27.0-31.0); Mean Corpuscular Volume 64.5 fL (78.0-98.0); Platelet Count 563 10x3/uL (130-400); Red Blood Cell (RBC) Count 5.02 mill/uL (4.70-6.10); White Blood Cell (WBC) Count 5.70 10x3/uL (4.8-10.8)
[2025-05-16 05:46] LABS: Magnesium 1.6 mg/dL (1.6-2.6)
[2025-05-16 05:47] LABS: ALT (SGPT) Less than 7 U/L (Less than 45); AST (SGOT) 24 U/L (11-34); Albumin 2.2 g/dL (3.1-4.5); Alkaline Phosphatase 152 U/L (40-110); Anion Gap 17 mmol/L (10-20); BUN (Urea Nitrogen) 9 mg/dL (8.9-20.6); Bilirubin, Total 0.3 mg/dL (0.3-1.2); Calc. Creatinine Clearance 212 mL/min (70-130); Calcium 8.6 mg/dL (7.8-10.44); Carbon Dioxide 25 mmol/L (22-29); Chloride 100 mmol/L (98-107); Globulin 3.1 g/dL (2.4-3.5); Glucose 68 mg/dL (70-105); Potassium 3.8 mmol/L (3.5-5.1); Sodium 138 mmol/L (136-145)
[2025-05-16] MEDS: Magnesium 2 GM/50 ML(in water) 2 GM in Premix 1 BAG IVPB SCH (05:58)
[2025-05-16 06:19] LABS: Anisocytosis SLIGHT = 6-15 cells HPF (0-5); Macrocytosis SLIGHT = 6-15 cells HPF (0-5); Platelet Adequacy Comment Platelets Normal; Poikilocytosis SLIGHT = 6-15 cells HPF (0-5); Polychromasia SLIGHT = 2-3 cells HPF (0-2); Smudge Cells 6.9 %
[2025-05-16] MEDS: Acetaminophen 325 MG TAB PO SCH (06:23)
[2025-05-16] MEDS: Fosaprepitant Dimeglumine 150 MG in 0.9 % Sodium Chloride 150 ML IVPB SCH (11:14)
[2025-05-16] MEDS: Dexamethasone 10 MG/ML VIAL SLOW IVP SCH (12:05)
[2025-05-16] MEDS: PALONOSETRON HCL 0.05 MG/ML 5 ML VIAL IVP SCH (12:05)
[2025-05-16] MEDS: CARBOplatin 750 MG in Sodium Chloride 0.9% 250 ML 250 ML IVPB SCH (13:40)
[2025-05-16 20:45] LABS: Uric Acid 5.1 mg/dL (3.7-7.7)
[2025-05-17 07:08] LABS: Hematocrit 28.7 % (42.0-52.0); Hemoglobin 8.2 g/dL (14.0-18.0); Mean Corpuscular Hemoglobin 18.7 pg (27.0-31.0); Mean Corpuscular Volume 65.5 fL (78.0-98.0); Platelet Count 489 10x3/uL (130-400); Red Blood Cell (RBC) Count 4.38 mill/uL (4.70-6.10); White Blood Cell (WBC) Count 5.25 10x3/uL (4.8-10.8)
[2025-05-17 07:24] LABS: ALT (SGPT) Less than 7 U/L (Less than 45); AST (SGOT) 20 U/L (11-34); Albumin 2.0 g/dL (3.1-4.5); Alkaline Phosphatase 122 U/L (40-110); Anion Gap 15 mmol/L (10-20); BUN (Urea Nitrogen) 12 mg/dL (8.9-20.6); Bilirubin, Total 0.1 mg/dL (0.3-1.2); Calc. Creatinine Clearance 304 mL/min (70-130); Calcium 8.5 mg/dL (7.8-10.44); Carbon Dioxide 26 mmol/L (22-29); Chloride 105 mmol/L (98-107); Globulin 3.0 g/dL (2.4-3.5); Glucose 157 mg/dL (70-105); Potassium 4.6 mmol/L (3.5-5.1); Sodium 141 mmol/L (136-145)
[2025-05-17 08:21] LABS: Anisocytosis MODERATE=16-30 cells HPF (0-5); Burr Cells MODERATE= 6-15 cells HPF (0-1); Macrocytosis SLIGHT = 6-15 cells HPF (0-5); Platelet Adequacy Comment Platelets Increased; Poikilocytosis SLIGHT = 6-15 cells HPF (0-5); Polychromasia MODERATE = 3-4 cells HPF (0-2); Schistocytes SLIGHT = 2-5 cells HPF (0-1); Smudge Cells 2.7 %; Target Cells MODERATE= 6-15 cells HPF (0-1); Toxic Granulation SLIGHT
[2025-05-17] MEDS: IFOSFAMIDE IVPB SCH (14:04)
[2025-05-17] MEDS: DEXTROSE 5% IVPB SCH (14:04)
[2025-05-17] MEDS: MESNA IVPB SCH (14:04)
[2025-05-17] MEDS: WATER IVPB SCH (14:04)
[2025-05-17 15:06] LABS: Uric Acid 3.6 mg/dL (3.7-7.7)
[2025-05-17 19:50] LABS: Bacteria/HPF None Seen HPF (None Seen); Glucose, Urine (Dipstick) Normal (Negative); Leukocyte Negative Leu/uL (Negative); Protein, Urine (Dipstick) Negative (Neg-Trace); RBC/HPF 0-3 HPF (0-3); Specific Gravity, Urine 1.024 (1.002-1.036); WBC/HPF 0-3 HPF (0-3)
[2025-05-17] MEDS: Ondansetron PF 4 MG/2 ML Vial IVP PRN (20:57)
[2025-05-18] MEDS: Simethicone Chewable 80 MG TAB PO PRN (03:30)
[2025-05-18] MEDS: Baclofen 10 MG TAB PO SCH (03:30)
[2025-05-18 08:52] LABS: ALT (SGPT) Less than 7 U/L (Less than 45); AST (SGOT) 27 U/L (11-34); Albumin 1.9 g/dL (3.1-4.5); Alkaline Phosphatase 113 U/L (40-110); Anion Gap 12 mmol/L (10-20); BUN (Urea Nitrogen) 13 mg/dL (8.9-20.6); Bilirubin, Total 0.1 mg/dL (0.3-1.2); Calc. Creatinine Clearance 269 mL/min (70-130); Calcium 8.0 mg/dL (7.8-10.44); Carbon Dioxide 28 mmol/L (22-29); Chloride 107 mmol/L (98-107); Globulin 2.8 g/dL (2.4-3.5); Glucose 91 mg/dL (70-105); Potassium 4.2 mmol/L (3.5-5.1); Sodium 143 mmol/L (136-145)
[2025-05-18 09:16] LABS: Hematocrit 29.8 % (42.0-52.0); Hemoglobin 8.7 g/dL (14.0-18.0); Mean Corpuscular Hemoglobin 18.9 pg (27.0-31.0); Mean Corpuscular Volume 64.8 fL (78.0-98.0); Platelet Count 341 10x3/uL (130-400); Red Blood Cell (RBC) Count 4.60 mill/uL (4.70-6.10); White Blood Cell (WBC) Count 3.43 10x3/uL (4.8-10.8)
[2025-05-18 10:32] LABS: Anisocytosis MARKED = >30 cells HPF (0-5); Burr Cells MARKED = >16 cells HPF (0-1); Macrocytosis SLIGHT = 6-15 cells HPF (0-5); Nucleated RBC (Manual Ct) 1 % (0); Platelet Adequacy Comment Platelets Normal; Poikilocytosis MODERATE=16-30 cells HPF (0-5); Polychromasia MODERATE = 3-4 cells HPF (0-2); Schistocytes SLIGHT = 2-5 cells HPF (0-1); Smudge Cells 7.5 %; Target Cells SLIGHT = 2-5 cells HPF (0-1)
[2025-05-18] MEDS: WATER IVPB SCH (14:50)
[2025-05-18] MEDS: DEXTROSE 5% IVPB SCH (14:50)
[2025-05-18] MEDS: MESNA IVPB SCH (14:50)
[2025-05-18 16:04] LABS: Uric Acid 3.6 mg/dL (3.7-7.7)
[2025-05-18 20:45] LABS: Bacteria/HPF None Seen HPF (None Seen); Glucose, Urine (Dipstick) Normal (Negative); Leukocyte Negative Leu/uL (Negative); Protein, Urine (Dipstick) Negative (Neg-Trace); RBC/HPF 0-3 HPF (0-3); Specific Gravity, Urine 1.018 (1.002-1.036); WBC/HPF 0-3 HPF (0-3)
[2025-05-18] MEDS ORDERED: Ketorolac Tromethamine 30 MG (1 mL) VIAL IVP SCH (22:45)
[2025-05-18] MEDS: Albumin 25% 25 GM (100 mL) BOT IVPB SCH (23:03)
[2025-05-18 23:33] LABS: Hematocrit 20.8 % (42.0-52.0); Hemoglobin 6.1 g/dL (14.0-18.0); Mean Corpuscular Hemoglobin 18.7 pg (27.0-31.0); Mean Corpuscular Volume 63.6 fL (78.0-98.0); Platelet Count 322 10x3/uL (130-400); Red Blood Cell (RBC) Count 3.27 mill/uL (4.70-6.10); White Blood Cell (WBC) Count 1.68 10x3/uL (4.8-10.8)
[2025-05-18 23:48] LABS: ALT (SGPT) Less than 7 U/L (Less than 45); AST (SGOT) 15 U/L (11-34); Albumin 1.7 g/dL (3.1-4.5); Alkaline Phosphatase 112 U/L (40-110); Anion Gap 12 mmol/L (10-20); BUN (Urea Nitrogen) 10 mg/dL (8.9-20.6); Bilirubin, Total 0.1 mg/dL (0.3-1.2); Calc. Creatinine Clearance 232 mL/min (70-130); Calcium 7.7 mg/dL (7.8-10.44); Carbon Dioxide 25 mmol/L (22-29); Chloride 105 mmol/L (98-107); Globulin 2.3 g/dL (2.4-3.5); Glucose 82 mg/dL (70-105); Magnesium 1.7 mg/dL (1.6-2.6); Potassium 3.8 mmol/L (3.5-5.1); Sodium 138 mmol/L (136-145)
[2025-05-18] MEDS: Ibuprofen 200 MG TAB PO PRN (23:48)
[2025-05-18 23:54] LABS: Anisocytosis SLIGHT = 6-15 cells HPF (0-5); Microcytosis SLIGHT = 6-15 cells HPF (0-5); Platelet Adequacy Comment Platelets Normal; Polychromasia SLIGHT = 2-3 cells HPF (0-2); Target Cells SLIGHT = 2-5 cells HPF (0-1)
[2025-05-19] MEDS: Albumin 25% 25 GM (100 mL) BOT IVPB SCH (03:08)
[2025-05-19] MEDS: Magnesium 2 GM/50 ML(in water) 2 GM in Premix 1 BAG IVPB SCH (03:09)
[2025-05-19] MEDS: VANCOMYCIN 2 GRAM/400 ML Premix BAG IVPB SCH (03:09)
[2025-05-19 05:21] LABS: Hematocrit 28.4 % (42.0-52.0); Hemoglobin 8.5 g/dL (14.0-18.0); Mean Corpuscular Hemoglobin 19.7 pg (27.0-31.0); Mean Corpuscular Volume 65.9 fL (78.0-98.0); Platelet Count 263 10x3/uL (130-400); Red Blood Cell (RBC) Count 4.31 mill/uL (4.70-6.10); White Blood Cell (WBC) Count 1.75 10x3/uL (4.8-10.8)
[2025-05-19 05:25] LABS: Vancomycin, Random 33.8 ug/mL (See Comment)
[2025-05-19 05:29] LABS: ALT (SGPT) Less than 7 U/L (Less than 45); AST (SGOT) 18 U/L (11-34); Albumin 2.0 g/dL (3.1-4.5); Alkaline Phosphatase 114 U/L (40-110); Anion Gap 10 mmol/L (10-20); BUN (Urea Nitrogen) 9 mg/dL (8.9-20.6); Bilirubin, Total 0.1 mg/dL (0.3-1.2); Calc. Creatinine Clearance 252 mL/min (70-130); Calcium 7.8 mg/dL (7.8-10.44); Carbon Dioxide 27 mmol/L (22-29); Chloride 108 mmol/L (98-107); Globulin 2.3 g/dL (2.4-3.5); Glucose 88 mg/dL (70-105); Potassium 4.0 mmol/L (3.5-5.1); Sodium 141 mmol/L (136-145)
[2025-05-19 05:47] LABS: Anisocytosis SLIGHT = 6-15 cells HPF (0-5); Microcytosis SLIGHT = 6-15 cells HPF (0-5); Platelet Adequacy Comment Platelets Normal; Poikilocytosis SLIGHT = 6-15 cells HPF (0-5); Polychromasia SLIGHT = 2-3 cells HPF (0-2)
[2025-05-19 06:27] LABS: Hematocrit 30.2 % (42.0-52.0); Hemoglobin 9.0 g/dL (14.0-18.0)
[2025-05-19 06:52] LABS: Hematocrit 29.6 % (42.0-52.0); Hemoglobin 8.9 g/dL (14.0-18.0); Mean Corpuscular Hemoglobin 20.0 pg (27.0-31.0); Mean Corpuscular Volume 66.5 fL (78.0-98.0); Platelet Count 255 10x3/uL (130-400); Red Blood Cell (RBC) Count 4.45 mill/uL (4.70-6.10); White Blood Cell (WBC) Count 1.98 10x3/uL (4.8-10.8)
[2025-05-19 07:01] LABS: INR-International Normal Ratio 1.2; Prothrombin Time 15.6 sec (12.0-14.7)
[2025-05-19] MEDS ORDERED: PROPOFOL 20 ML ONE (07:23)
[2025-05-19] MEDS ORDERED: fentaNYL PF 100 MCG/2 ML SYRINGE ONE (07:23)
[2025-05-19 07:24] LABS: Anisocytosis SLIGHT = 6-15 cells HPF (0-5); Macrocytosis SLIGHT = 6-15 cells HPF (0-5); Platelet Adequacy Comment Platelets Normal; Poikilocytosis MODERATE=16-30 cells HPF (0-5); Polychromasia MODERATE = 3-4 cells HPF (0-2); Target Cells SLIGHT = 2-5 cells HPF (0-1)
[2025-05-19] MEDS ORDERED: Etomidate 40 MG (20 mL) VIAL ONE (07:26)
[2025-05-19] MEDS ORDERED: SUCCINYLCHOLINE/SOD CL,ISO/PF 200 MG/10 ML SYRINGE FS ONE (07:26)
[2025-05-19] MEDS ORDERED: Lidocaine 1% PF 5 ML VIAL ONE (07:26)
[2025-05-19] MEDS ORDERED: Ondansetron PF 4 MG/2 ML Vial ONE (07:26)
[2025-05-19] MEDS ORDERED: Ketamine In 0.9 % NaCl 50 MG/5 ML SYRINGE ONE (07:40)
[2025-05-19] MEDS ORDERED: Phenylephrine 40 MG/NS 250 ML 250 ML ONE (07:53)
[2025-05-19] MEDS ORDERED: PEGFILGRASTIM-PBBK 6 MG/0.6 ML SYRINGE SQ SCH (09:00)
[2025-05-19] MEDS ORDERED: Vancomycin 1 GM in Premix 1 BAG IVPB SCH (09:00)
[2025-05-19 10:52] LABS: Hematocrit 35.0 % (42.0-52.0); Hemoglobin 10.7 g/dL (14.0-18.0); Mean Corpuscular Hemoglobin 21.9 pg (27.0-31.0); Mean Corpuscular Volume 71.6 fL (78.0-98.0); Platelet Count 243 10x3/uL (130-400); Red Blood Cell (RBC) Count 4.89 mill/uL (4.70-6.10); White Blood Cell (WBC) Count 2.01 10x3/uL (4.8-10.8)
[2025-05-19 11:01] LABS: INR-International Normal Ratio 1.3; PTT 26.6 sec (22.9-36.1); Prothrombin Time 16.2 sec (12.0-14.7)
[2025-05-19] MEDS ORDERED: DISCONTINUE PREVIOUS NARCOTIC PAIN MEDICATIONS AND BENZODIAZEPINES FS SCH (11:15)
[2025-05-19] MEDS ORDERED: Fentanyl BOLUS 100 ML IVPB PRN (11:15)
[2025-05-19] MEDS ORDERED: Propofol BOLUS 1,000 MG/100 ML VIAL IV PRN (11:15)
[2025-05-19 11:23] LABS: ALT (SGPT) Less than 7 U/L (Less than 45); AST (SGOT) 28 U/L (11-34); Albumin 2.5 g/dL (3.1-4.5); Alkaline Phosphatase 104 U/L (40-110); Anion Gap 11 mmol/L (10-20); BUN (Urea Nitrogen) 9 mg/dL (8.9-20.6); Bilirubin, Total 0.2 mg/dL (0.3-1.2); Calc. Creatinine Clearance 196 mL/min (70-130); Calcium 7.8 mg/dL (7.8-10.44); Carbon Dioxide 24 mmol/L (22-29); Chloride 107 mmol/L (98-107); Globulin 2.2 g/dL (2.4-3.5); Glucose 106 mg/dL (70-105); Magnesium 1.9 mg/dL (1.6-2.6); Potassium 4.3 mmol/L (3.5-5.1); Sodium 138 mmol/L (136-145)
[2025-05-19 11:30] LABS: Anisocytosis SLIGHT = 6-15 cells HPF (0-5); Microcytosis SLIGHT = 6-15 cells HPF (0-5); Platelet Adequacy Comment Platelets Normal; Poikilocytosis SLIGHT = 6-15 cells HPF (0-5); Polychromasia SLIGHT = 2-3 cells HPF (0-2); Schistocytes SLIGHT = 2-5 cells HPF (0-1); Target Cells SLIGHT = 2-5 cells HPF (0-1)
[2025-05-19] MEDS: Vancomycin 1.5 GM / NS 500 ML VIAL-2-BAG IVPB SCH (12:10)
[2025-05-19] MEDS: Pantoprazole 40 MG VIAL IVP SCH ×2 (12:26→19:43)
[2025-05-19] MEDS: NOREPINEPHRINE 8 MG/250 ML-D5W 250 ML IVPB SCH (13:25)
[2025-05-19] MEDS ORDERED: Iopamidol-370 76% 500 ML MDV (1 ML CHARGE) ONE (13:43)
[2025-05-19] MEDS: Vancomycin 1.25 GM / NS 250 ML VIAL-2-BAG IVPB SCH (14:40)
[2025-05-19] MEDS: NOREPINEPHRINE 8 MG/250 ML-D5W 250 ML ONE (14:41)
[2025-05-20 04:55] LABS: Vancomycin, Random 5.7 ug/mL (See Comment)
[2025-05-20 04:56] LABS: ALT (SGPT) Less than 7 U/L (Less than 45); AST (SGOT) 17 U/L (11-34); Albumin 2.1 g/dL (3.1-4.5); Alkaline Phosphatase 88 U/L (40-110); Anion Gap 11 mmol/L (10-20); BUN (Urea Nitrogen) 9 mg/dL (8.9-20.6); Bilirubin, Total 0.3 mg/dL (0.3-1.2); Calc. Creatinine Clearance 221 mL/min (70-130); Calcium 8.0 mg/dL (7.8-10.44); Carbon Dioxide 28 mmol/L (22-29); Chloride 104 mmol/L (98-107); Globulin 2.5 g/dL (2.4-3.5); Glucose 91 mg/dL (70-105); Potassium 4.3 mmol/L (3.5-5.1); Sodium 139 mmol/L (136-145)
[2025-05-20 05:01] LABS: Hematocrit 29.7 % (42.0-52.0); Hemoglobin 9.4 g/dL (14.0-18.0); Mean Corpuscular Hemoglobin 22.1 pg (27.0-31.0); Mean Corpuscular Volume 69.7 fL (78.0-98.0); Platelet Count 220 10x3/uL (130-400); Red Blood Cell (RBC) Count 4.26 mill/uL (4.70-6.10); White Blood Cell (WBC) Count 1.19 10x3/uL (4.8-10.8)
[2025-05-20] MEDS ORDERED: PROPOFOL 20 ML ONE (08:40)
[2025-05-20] MEDS ORDERED: PHENYLEPHRINE-NS 100 MCG/ML 10 ML SYRINGE ONE (08:40)
[2025-05-20] MEDS ORDERED: fentaNYL PF 100 MCG/2 ML SYRINGE ONE (08:40)
[2025-05-20] MEDS ORDERED: Calcium Chloride 1 GM/10 ML Abboject SYRINGE ONE (08:40)
[2025-05-20] MEDS ORDERED: Rocuronium Bromide 10 MG/ML (10ML VIAL) ONE (08:48)
[2025-05-20] MEDS: PEGFILGRASTIM-PBBK 6 MG/0.6 ML SYRINGE SQ SCH (11:43)
[2025-05-20] MEDS: Vancomycin 1.5 GM / NS 500 ML VIAL-2-BAG IVPB SCH (18:21)
[2025-05-20] MEDS: Midazolam In 0.9 % NaCl/PF 100 ML IV SCH (21:37)
[2025-05-21 04:49] LABS: Hematocrit 28.1 % (42.0-52.0); Hemoglobin 8.8 g/dL (14.0-18.0); Mean Corpuscular Hemoglobin 21.9 pg (27.0-31.0); Mean Corpuscular Volume 70.1 fL (78.0-98.0); Platelet Count 196 10x3/uL (130-400); Red Blood Cell (RBC) Count 4.01 mill/uL (4.70-6.10); White Blood Cell (WBC) Count 0.46 10x3/uL (4.8-10.8)
[2025-05-21 05:01] LABS: Vancomycin, Random 25.1 ug/mL (See Comment)
[2025-05-21 05:02] LABS: ALT (SGPT) Less than 7 U/L (Less than 45); AST (SGOT) 19 U/L (11-34); Albumin 2.1 g/dL (3.1-4.5); Alkaline Phosphatase 76 U/L (40-110); Anion Gap 12 mmol/L (10-20); BUN (Urea Nitrogen) 7 mg/dL (8.9-20.6); Bilirubin, Total 0.5 mg/dL (0.3-1.2); Calc. Creatinine Clearance 231 mL/min (70-130); Calcium 8.4 mg/dL (7.8-10.44); Carbon Dioxide 24 mmol/L (22-29); Chloride 106 mmol/L (98-107); Globulin 3.1 g/dL (2.4-3.5); Glucose 73 mg/dL (70-105); Potassium 3.8 mmol/L (3.5-5.1); Sodium 138 mmol/L (136-145)
[2025-05-21 05:12] LABS: Microcytosis SLIGHT = 6-15 cells HPF (0-5); Nucleated RBC (Manual Ct) 1 % (0); Platelet Adequacy Comment Platelets Normal; Polychromasia SLIGHT = 2-3 cells HPF (0-2); Target Cells SLIGHT = 2-5 cells HPF (0-1)
[2025-05-21 05:21] LABS: HIV (1/2) Antibody/Antigen NONREACTIVE (NonReactive); HIV 1/2 INDEX 0.05 S/CO (<1.00)
[2025-05-21 07:51] VITALS: BMI 26.2
[2025-05-21] MEDS: Vancomycin 1.5 GM / NS 500 ML VIAL-2-BAG IVPB SCH (14:31)
[2025-05-22 04:32] LABS: Hematocrit 26.3 % (42.0-52.0); Hemoglobin 8.2 g/dL (14.0-18.0); Mean Corpuscular Hemoglobin 21.6 pg (27.0-31.0); Mean Corpuscular Volume 69.4 fL (78.0-98.0); Platelet Count 131 10x3/uL (130-400); Red Blood Cell (RBC) Count 3.79 mill/uL (4.70-6.10); White Blood Cell (WBC) Count 0.21 10x3/uL (4.8-10.8)
[2025-05-22 04:35] LABS: Vancomycin, Random 18.6 ug/mL (See Comment)
[2025-05-22 04:42] LABS: ALT (SGPT) Less than 7 U/L (Less than 45); AST (SGOT) 31 U/L (11-34); Albumin 1.8 g/dL (3.1-4.5); Alkaline Phosphatase 88 U/L (40-110); Anion Gap 12 mmol/L (10-20); BUN (Urea Nitrogen) 8 mg/dL (8.9-20.6); Bilirubin, Total 0.9 mg/dL (0.3-1.2); Calc. Creatinine Clearance 244 mL/min (70-130); Calcium 8.1 mg/dL (7.8-10.44); Carbon Dioxide 24 mmol/L (22-29); Chloride 106 mmol/L (98-107); Globulin 3.3 g/dL (2.4-3.5); Glucose 66 mg/dL (70-105); Potassium 3.2 mmol/L (3.5-5.1); Sodium 139 mmol/L (136-145)
[2025-05-22 05:23] LABS: #Basophils Less than 0.03 10x3/uL (0.0-0.2); #Eosinophils 0.04 10x3/uL (0.0-0.7); #Monocytes Less than 0.03 10x3/uL (0.11-0.59); #Neutrophils Less than 0.03 10x3/uL (1.40-6.50); %Basophils 5.3 % (0.0-1.0); %Eosinophils 21.1 % (0.0-10.0); %Lymphocytes 47.4 % (21.0-51.0); %Monocytes 5.3 % (0.0-10.0); %Neutrophils 10.4 % (42.0-75.0)
[2025-05-22 05:26] LABS: Anisocytosis SLIGHT = 6-15 cells HPF (0-5); Microcytosis SLIGHT = 6-15 cells HPF (0-5); Platelet Adequacy Comment Platelets Normal; Target Cells SLIGHT = 2-5 cells HPF (0-1)
[2025-05-22 07:10] LABS: Actual Bicarbonate (HCO3a) 24.5 mEq/L (22-28); Base Excess (BEa) 0.7 mEq/L (-2.0 to +3.0); CO2 Tension 36.0 mmHg (35.0-45.0); Calcium, Ionized (arterial) 1.12 mmol/L (1.12-1.30); Hematocrit-ABG 27 % (42.0-52.0); Hemoglobin (Hb) 9.2 g/dL (14.0-18.0); O2 Tension (PaO2), arterial 71.5 mmHg (80.0-100.0); Potassium - ABG Lab 3.10 mmol/L (3.70-5.30); pH, Arterial 7.451 (7.35-7.45)
[2025-05-22 07:11] LABS: ALV-art Gradient 168.700 mmHg (0-20); Puncture Site Arterial Line
[2025-05-22] MEDS: Potassium Chloride 20 MEQ in Premix 1 BAG IVPB SCH (09:39)
[2025-05-22] MEDS: Potassium Chloride 40 MEQ in Premix 1 BAG IVPB SCH ×2 (11:03→22:51)
[2025-05-22] MEDS: Electrolyte Replacement Protocol 1 EACH FS ONE (11:03)
[2025-05-22 11:05] LABS: Magnesium 2.1 mg/dL (1.6-2.6)
[2025-05-22 16:47] LABS: Potassium 3.2 mmol/L (3.5-5.1)
[2025-05-22] MEDS ORDERED: Dextrose 50% Abboject 50 ML SYRINGE SLOW IVP PRN (17:45)
[2025-05-22] MEDS ORDERED: Glucagon 1 MG/ML KIT IM PRN (17:45)
[2025-05-22] MEDS: Dextrose 50% Abboject 50 ML SYRINGE ONE (17:56)
[2025-05-22] MEDS: Potassium Chloride 30 MEQ in Dextrose 5 %-0.45 % NaCl 1,000 ML IV SCH (20:36)
[2025-05-23 04:14] LABS: Hematocrit 23.7 % (42.0-52.0); Hemoglobin 7.6 g/dL (14.0-18.0); Mean Corpuscular Hemoglobin 21.7 pg (27.0-31.0); Mean Corpuscular Volume 67.7 fL (78.0-98.0); Platelet Count 80 10x3/uL (130-400); Red Blood Cell (RBC) Count 3.50 mill/uL (4.70-6.10); White Blood Cell (WBC) Count 0.24 10x3/uL (4.8-10.8)
[2025-05-23 04:25] LABS: Uric Acid 2.4 mg/dL (3.7-7.7)
[2025-05-23 04:35] LABS: ALT (SGPT) 11 U/L (Less than 45); AST (SGOT) 215 U/L (11-34); Albumin 1.6 g/dL (3.1-4.5); Alkaline Phosphatase 209 U/L (40-110); Anion Gap 11 mmol/L (10-20); BUN (Urea Nitrogen) 9 mg/dL (8.9-20.6); Bilirubin, Total 2.0 mg/dL (0.3-1.2); Calc. Creatinine Clearance 215 mL/min (70-130); Calcium 7.7 mg/dL (7.8-10.44); Carbon Dioxide 24 mmol/L (22-29); Chloride 108 mmol/L (98-107); Globulin 3.0 g/dL (2.4-3.5); Glucose 96 mg/dL (70-105); Potassium 3.1 mmol/L (3.5-5.1); Sodium 140 mmol/L (136-145)
[2025-05-23 04:47] LABS: Anisocytosis SLIGHT = 6-15 cells HPF (0-5); Microcytosis SLIGHT = 6-15 cells HPF (0-5); Platelet Adequacy Comment Platelets Decreased; Polychromasia SLIGHT = 2-3 cells HPF (0-2); Target Cells SLIGHT = 2-5 cells HPF (0-1)
[2025-05-23] MEDS: Albumin 25% 25 GM (100 mL) BOT IVPB SCH (05:32)
[2025-05-23 07:03] LABS: Actual Bicarbonate (HCO3a) 26.2 mEq/L (22-28); Base Excess (BEa) 2.5 mEq/L (-2.0 to +3.0); CO2 Tension 36.7 mmHg (35.0-45.0); Calcium, Ionized (arterial) 1.07 mmol/L (1.12-1.30); Hematocrit-ABG 24 % (42.0-52.0); Hemoglobin (Hb) 8.0 g/dL (14.0-18.0); O2 Tension (PaO2), arterial 71.2 mmHg (80.0-100.0); Potassium - ABG Lab 2.98 mmol/L (3.70-5.30); pH, Arterial 7.472 (7.35-7.45)
[2025-05-23 07:07] LABS: ALV-art Gradient 168.125 mmHg (0-20); Puncture Site Arterial Line
[2025-05-23] MEDS: Potassium Chloride 20 MEQ in Premix 1 BAG IVPB SCH (07:46)
[2025-05-23] MEDS: Allopurinol 100 MG TAB PER TUBE SCH (09:22)
[2025-05-23] MEDS: FILGRASTIM-AYOW 480 MCG/0.8 ML SYRINGE SC SCH (11:45)
[2025-05-23 15:47] LABS: Potassium 3.2 mmol/L (3.5-5.1)
[2025-05-23 19:45] LABS: INR-International Normal Ratio 1.4; Prothrombin Time 17.1 sec (12.0-14.7)
[2025-05-23 19:46] LABS: PTT 38.8 sec (22.9-36.1)
[2025-05-24 04:26] LABS: ALT (SGPT) 10 U/L (Less than 45); AST (SGOT) 49 U/L (11-34); Albumin 2.4 g/dL (3.1-4.5); Alkaline Phosphatase 146 U/L (40-110); Anion Gap 11 mmol/L (10-20); BUN (Urea Nitrogen) 7 mg/dL (8.9-20.6); Bilirubin, Total 1.5 mg/dL (0.3-1.2); Calc. Creatinine Clearance 282 mL/min (70-130); Calcium 8.3 mg/dL (7.8-10.44); Carbon Dioxide 27 mmol/L (22-29); Chloride 108 mmol/L (98-107); Globulin 2.6 g/dL (2.4-3.5); Glucose 105 mg/dL (70-105); Potassium 3.1 mmol/L (3.5-5.1); Sodium 143 mmol/L (136-145)
[2025-05-24 04:54] LABS: #Basophils Less than 0.03 10x3/uL (0.0-0.2); #Eosinophils Less than 0.03 10x3/uL (0.0-0.7); #Monocytes 0.05 10x3/uL (0.11-0.59); #Neutrophils Less than 0.03 10x3/uL (1.40-6.50); %Basophils 0.0 % (0.0-1.0); %Eosinophils 3.6 % (0.0-10.0); %Lymphocytes 67.9 % (21.0-51.0); %Monocytes 17.9 % (0.0-10.0); %Neutrophils 7.0 % (42.0-75.0); Hematocrit 23.1 % (42.0-52.0); Hemoglobin 7.4 g/dL (14.0-18.0); Mean Corpuscular Hemoglobin 21.9 pg (27.0-31.0); Mean Corpuscular Volume 68.3 fL (78.0-98.0); Platelet Count 37 10x3/uL (130-400); Red Blood Cell (RBC) Count 3.38 mill/uL (4.70-6.10); White Blood Cell (WBC) Count 0.28 10x3/uL (4.8-10.8)
[2025-05-24 07:28] LABS: Actual Bicarbonate (HCO3a) 27.0 mEq/L (22-28); Base Excess (BEa) 3.7 mEq/L (-2.0 to +3.0); CO2 Tension 35.7 mmHg (35.0-45.0); Calcium, Ionized (arterial) 1.13 mmol/L (1.12-1.30); Hematocrit-ABG 25 % (42.0-52.0); Hemoglobin (Hb) 8.5 g/dL (14.0-18.0); O2 Tension (PaO2), arterial 80.3 mmHg (80.0-100.0); Potassium - ABG Lab 3.36 mmol/L (3.70-5.30); pH, Arterial 7.497 (7.35-7.45)
[2025-05-24 07:30] LABS: ALV-art Gradient 160.275 mmHg (0-20); Puncture Site Arterial Line
[2025-05-24] MEDS: Potassium Chloride 20 MEQ in Premix 1 BAG IVPB SCH (09:03)
[2025-05-24 23:29] LABS: Anion Gap 12 mmol/L (10-20); BUN (Urea Nitrogen) 10 mg/dL (8.9-20.6); Calc. Creatinine Clearance 222 mL/min (70-130); Calcium 7.7 mg/dL (7.8-10.44); Carbon Dioxide 26 mmol/L (22-29); Chloride 112 mmol/L (98-107); Glucose 113 mg/dL (70-105); Potassium 3.4 mmol/L (3.5-5.1); Sodium 147 mmol/L (136-145)
[2025-05-25 04:51] LABS: ALT (SGPT) 8 U/L (Less than 45); AST (SGOT) 43 U/L (11-34); Albumin 2.1 g/dL (3.1-4.5); Alkaline Phosphatase 190 U/L (40-110); Anion Gap 12 mmol/L (10-20); BUN (Urea Nitrogen) 9 mg/dL (8.9-20.6); Bilirubin, Total 1.3 mg/dL (0.3-1.2); Calc. Creatinine Clearance 218 mL/min (70-130); Calcium 7.9 mg/dL (7.8-10.44); Carbon Dioxide 26 mmol/L (22-29); Chloride 114 mmol/L (98-107); Globulin 3.0 g/dL (2.4-3.5); Glucose 101 mg/dL (70-105); Potassium 3.3 mmol/L (3.5-5.1); Sodium 149 mmol/L (136-145)
[2025-05-25 05:09] LABS: Hematocrit 24.7 % (42.0-52.0); Hemoglobin 7.9 g/dL (14.0-18.0); Mean Corpuscular Hemoglobin 21.8 pg (27.0-31.0); Mean Corpuscular Volume 68.0 fL (78.0-98.0); Platelet Count 49 10x3/uL (130-400); Red Blood Cell (RBC) Count 3.63 mill/uL (4.70-6.10); White Blood Cell (WBC) Count 0.56 10x3/uL (4.8-10.8)
[2025-05-25] MEDS: Potassium Chloride 30 MEQ in Dextrose 5 %-0.45 % NaCl 1,000 ML IV SCH (06:30)
[2025-05-25 07:05] LABS: Osmolality, Serum 300 mOsm/kg (275-295)
[2025-05-25 07:25] LABS: Anisocytosis MODERATE=16-30 cells HPF (0-5); Burr Cells SLIGHT = 2-5 cells HPF (0-1); Macrocytosis SLIGHT = 6-15 cells HPF (0-5); Platelet Adequacy Comment Significant Decrease; Poikilocytosis SLIGHT = 6-15 cells HPF (0-5); Polychromasia SLIGHT = 2-3 cells HPF (0-2); Smudge Cells 16.7 %; Target Cells SLIGHT = 2-5 cells HPF (0-1)
[2025-05-25] MEDS: Potassium Chloride 20 MEQ in Premix 1 BAG IVPB SCH ×2 (07:43→20:27)
[2025-05-25 08:17] LABS: Actual Bicarbonate (HCO3a) 24.9 mEq/L (22-28); Base Excess (BEa) 1.9 mEq/L (-2.0 to +3.0); CO2 Tension 32.2 mmHg (35.0-45.0); Calcium, Ionized (arterial) 1.06 mmol/L (1.12-1.30); Hematocrit-ABG 23 % (42.0-52.0); Hemoglobin (Hb) 7.8 g/dL (14.0-18.0); O2 Tension (PaO2), arterial 83.0 mmHg (80.0-100.0); Potassium - ABG Lab 3.74 mmol/L (3.70-5.30); pH, Arterial 7.506 (7.35-7.45)
[2025-05-25 08:19] LABS: ALV-art Gradient 161.950 mmHg (0-20); Puncture Site Arterial Line
[2025-05-25 15:55] LABS: Potassium 3.5 mmol/L (3.5-5.1)
[2025-05-25] MEDS: Scopolamine 1 mg/72 hour Patch TD SCH (21:44)
[2025-05-26] MEDS: Glycopyrrolate 0.4 MG/ 2 ML VIAL SLOW IVP PRN (03:05)
[2025-05-26 04:13] LABS: Hematocrit 21.1 % (42.0-52.0); Hemoglobin 6.5 g/dL (14.0-18.0); Mean Corpuscular Hemoglobin 21.6 pg (27.0-31.0); Mean Corpuscular Volume 70.1 fL (78.0-98.0); Platelet Count 94 10x3/uL (130-400); Red Blood Cell (RBC) Count 3.01 mill/uL (4.70-6.10); White Blood Cell (WBC) Count 1.36 10x3/uL (4.8-10.8)
[2025-05-26 04:30] LABS: ALT (SGPT) 7 U/L (Less than 45); AST (SGOT) 29 U/L (11-34); Albumin 1.9 g/dL (3.1-4.5); Alkaline Phosphatase 181 U/L (40-110); Anion Gap 12 mmol/L (10-20); BUN (Urea Nitrogen) 8 mg/dL (8.9-20.6); Bilirubin, Total 0.9 mg/dL (0.3-1.2); Calc. Creatinine Clearance 251 mL/min (70-130); Calcium 7.8 mg/dL (7.8-10.44); Carbon Dioxide 24 mmol/L (22-29); Chloride 115 mmol/L (98-107); Globulin 2.8 g/dL (2.4-3.5); Glucose 100 mg/dL (70-105); Potassium 3.9 mmol/L (3.5-5.1); Sodium 147 mmol/L (136-145); Uric Acid 1.1 mg/dL (3.7-7.7)
[2025-05-26 05:12] LABS: Anisocytosis MODERATE=16-30 cells HPF (0-5); Microcytosis SLIGHT = 6-15 cells HPF (0-5); Nucleated RBC (Manual Ct) 1 % (0); Platelet Adequacy Comment Platelets Decreased; Polychromasia MODERATE = 3-4 cells HPF (0-2); Smudge Cells 3.5 %; Target Cells SLIGHT = 2-5 cells HPF (0-1)
[2025-05-26 14:07] LABS: Actual Bicarbonate (HCO3a) 24.0 mEq/L (22-28); Base Excess (BEa) 0.3 mEq/L (-2.0 to +3.0); CO2 Tension 34.7 mmHg (35.0-45.0); Calcium, Ionized (arterial) 1.18 mmol/L (1.12-1.30); Hematocrit-ABG 25 % (42.0-52.0); Hemoglobin (Hb) 8.6 g/dL (14.0-18.0); O2 Tension (PaO2), arterial 61.0 mmHg (80.0-100.0); Potassium - ABG Lab 3.95 mmol/L (3.70-5.30); pH, Arterial 7.458 (7.35-7.45)
[2025-05-26] MEDS ORDERED: GASTROGRAFIN 30 ML BOT ONE (14:44)
[2025-05-26] MEDS ORDERED: Iopamidol 370 76% 100 ML VIAL ONE (14:44)
[2025-05-26] MEDS: oxyCODONE 5 MG TAB PO PRN (14:49)
[2025-05-26 14:54] LABS: ALV-art Gradient 109.525 mmHg (0-20); Puncture Site Right Radial artery
[2025-05-27 04:16] LABS: ALT (SGPT) Less than 7 U/L (Less than 45); AST (SGOT) 29 U/L (11-34); Albumin 2.0 g/dL (3.1-4.5); Alkaline Phosphatase 204 U/L (40-110); Anion Gap 12 mmol/L (10-20); BUN (Urea Nitrogen) 8 mg/dL (8.9-20.6); Bilirubin, Total 0.9 mg/dL (0.3-1.2); Calc. Creatinine Clearance 245 mL/min (70-130); Calcium 8.2 mg/dL (7.8-10.44); Carbon Dioxide 23 mmol/L (22-29); Chloride 112 mmol/L (98-107); Globulin 3.0 g/dL (2.4-3.5); Glucose 100 mg/dL (70-105); Potassium 3.7 mmol/L (3.5-5.1); Sodium 143 mmol/L (136-145)
[2025-05-27 04:21] LABS: Hematocrit 24.0 % (42.0-52.0); Hemoglobin 7.5 g/dL (14.0-18.0); Mean Corpuscular Hemoglobin 21.9 pg (27.0-31.0); Mean Corpuscular Volume 70.0 fL (78.0-98.0); Platelet Count 160 10x3/uL (130-400); Red Blood Cell (RBC) Count 3.43 mill/uL (4.70-6.10); White Blood Cell (WBC) Count 5.65 10x3/uL (4.8-10.8)
[2025-05-27 06:05] LABS: Macrocytosis MODERATE=16-30 cells HPF (0-5); Platelet Adequacy Comment Platelets Normal; Polychromasia SLIGHT = 2-3 cells HPF (0-2); Smudge Cells 8.5 %; Target Cells SLIGHT = 2-5 cells HPF (0-1)
[2025-05-27] MEDS: diphenhydrAMINE 50 MG/ML VIAL IM/IV PRN (06:42)
[2025-05-27] MEDS: QUEtiapine 25 MG TAB PER TUBE SCH ×2 (10:26→21:49)
[2025-05-27] MEDS: diphenhydrAMINE 25 MG CAP PO PRN (15:02)
[2025-05-27] MEDS: Potassium Chloride 30 MEQ in Dextrose 5 %-0.45 % NaCl 1,000 ML IV SCH (17:37)
[2025-05-28 04:15] LABS: Hematocrit 21.1 % (42.0-52.0); Hemoglobin 6.5 g/dL (14.0-18.0); Mean Corpuscular Hemoglobin 21.8 pg (27.0-31.0); Mean Corpuscular Volume 70.8 fL (78.0-98.0); Platelet Count 305 10x3/uL (130-400); Red Blood Cell (RBC) Count 2.98 mill/uL (4.70-6.10); White Blood Cell (WBC) Count 12.28 10x3/uL (4.8-10.8)
[2025-05-28 05:21] LABS: Anisocytosis MODERATE=16-30 cells HPF (0-5); Dohle Bodies SLIGHT; Microcytosis SLIGHT = 6-15 cells HPF (0-5); Platelet Adequacy Comment Platelets Normal; Polychromasia MODERATE = 3-4 cells HPF (0-2); Smudge Cells 1.9 %; Target Cells SLIGHT = 2-5 cells HPF (0-1); Toxic Granulation SLIGHT
[2025-05-28 05:51] LABS: Anion Gap 13 mmol/L (10-20); BUN (Urea Nitrogen) 7 mg/dL (8.9-20.6); Calc. Creatinine Clearance 226 mL/min (70-130); Calcium 7.9 mg/dL (7.8-10.44); Carbon Dioxide 23 mmol/L (22-29); Chloride 109 mmol/L (98-107); Glucose 98 mg/dL (70-105); Potassium 3.7 mmol/L (3.5-5.1); Sodium 141 mmol/L (136-145)
[2025-05-28] MEDS: oxyCODONE/Acetaminophen 5 mg/325 mg Tablet PO PRN (09:31)
[2025-05-28] MEDS: oxyCODONE 5 MG TAB PO PRN (16:19)
[2025-05-28] MEDS: Senokot S 8.6-50 MG TAB PO SCH ×2 (16:41→21:14)
[2025-05-28] MEDS: Heparin 5,000 UNITS/ML VIAL SC SCH (16:41)
[2025-05-29 05:57] LABS: Anion Gap 13 mmol/L (10-20); BUN (Urea Nitrogen) 6 mg/dL (8.9-20.6); Calc. Creatinine Clearance 240 mL/min (70-130); Calcium 7.8 mg/dL (7.8-10.44); Carbon Dioxide 22 mmol/L (22-29); Chloride 108 mmol/L (98-107); Glucose 94 mg/dL (70-105); Potassium 3.4 mmol/L (3.5-5.1); Sodium 140 mmol/L (136-145)
[2025-05-29 05:58] LABS: Hematocrit 23.6 % (42.0-52.0); Hemoglobin 7.3 g/dL (14.0-18.0); Mean Corpuscular Hemoglobin 22.5 pg (27.0-31.0); Mean Corpuscular Volume 72.6 fL (78.0-98.0); Platelet Count 407 10x3/uL (130-400); Red Blood Cell (RBC) Count 3.25 mill/uL (4.70-6.10); White Blood Cell (WBC) Count 19.79 10x3/uL (4.8-10.8)
[2025-05-29 07:00] LABS: Anisocytosis SLIGHT = 6-15 cells HPF (0-5); Macrocytosis SLIGHT = 6-15 cells HPF (0-5); Platelet Adequacy Comment Platelets Normal; Polychromasia SLIGHT = 2-3 cells HPF (0-2); Smudge Cells 5.0 %
[2025-05-29] MEDS: Potassium Chloride 20 MEQ in Premix 1 BAG IVPB SCH (08:52)
[2025-05-29] MEDS: Mineral Oil ENEMA PR SCH (08:52)
[2025-05-30 06:30] LABS: Hematocrit 27.0 % (42.0-52.0); Hemoglobin 8.0 g/dL (14.0-18.0); Mean Corpuscular Hemoglobin 22.5 pg (27.0-31.0); Mean Corpuscular Volume 75.8 fL (78.0-98.0); Platelet Count 602 10x3/uL (130-400); Red Blood Cell (RBC) Count 3.56 mill/uL (4.70-6.10); White Blood Cell (WBC) Count 23.62 10x3/uL (4.8-10.8)
[2025-05-30 07:00] LABS: Anion Gap 15 mmol/L (10-20); BUN (Urea Nitrogen) 6 mg/dL (8.9-20.6); Calc. Creatinine Clearance 211 mL/min (70-130); Calcium 8.2 mg/dL (7.8-10.44); Carbon Dioxide 21 mmol/L (22-29); Chloride 108 mmol/L (98-107); Glucose 77 mg/dL (70-105); Potassium 3.7 mmol/L (3.5-5.1); Sodium 140 mmol/L (136-145)
[2025-05-30 08:55] LABS: Burr Cells SLIGHT = 2-5 cells HPF (0-1); Microcytosis SLIGHT = 6-15 cells HPF (0-5); Platelet Adequacy Comment Platelets Increased; Polychromasia MARKED = >4 cells HPF (0-2); Schistocytes SLIGHT = 2-5 cells HPF (0-1); Smudge Cells 2.9 %; Target Cells SLIGHT = 2-5 cells HPF (0-1)
[2025-05-30] MEDS ORDERED: Iopamidol-370 76% 500 ML MDV (1 ML CHARGE) ONE (11:22)
[2025-05-31 06:39] LABS: Anion Gap 11 mmol/L (10-20); BUN (Urea Nitrogen) Less than 4 mg/dL (8.9-20.6); Calc. Creatinine Clearance 246 mL/min (70-130); Calcium 6.9 mg/dL (7.8-10.44); Carbon Dioxide 22 mmol/L (22-29); Chloride 111 mmol/L (98-107); Glucose 76 mg/dL (70-105); Potassium 3.1 mmol/L (3.5-5.1); Sodium 141 mmol/L (136-145)
[2025-05-31 06:40] LABS: Hematocrit 22.7 % (42.0-52.0); Hemoglobin 7.4 g/dL (14.0-18.0); Mean Corpuscular Hemoglobin 25.0 pg (27.0-31.0); Mean Corpuscular Volume 76.7 fL (78.0-98.0); Platelet Count 682 10x3/uL (130-400); Red Blood Cell (RBC) Count 2.96 mill/uL (4.70-6.10); White Blood Cell (WBC) Count 21.70 10x3/uL (4.8-10.8)
[2025-05-31 07:21] LABS: Anisocytosis SLIGHT = 6-15 cells HPF (0-5); Macrocytosis SLIGHT = 6-15 cells HPF (0-5); Nucleated RBC (Manual Ct) 1 % (0); Platelet Adequacy Comment Platelets Increased; Polychromasia SLIGHT = 2-3 cells HPF (0-2); Smudge Cells 2.8 %
[2025-05-31] MEDS: CALCIUM GLUC 1 GM/NS 50 ML 1 GM in Premix 1 BAG IVPB SCH (08:09)
[2025-05-31] MEDS ORDERED: Rocuronium Bromide 10 MG/ML (10ML VIAL) ONE ×2 (12:19→12:46)
[2025-05-31] MEDS ORDERED: PROPOFOL 20 ML ONE (12:19)
[2025-05-31] MEDS ORDERED: Lidocaine 1% PF 5 ML VIAL ONE (12:19)
[2025-05-31] MEDS ORDERED: PHENYLEPHRINE-NS 100 MCG/ML 10 ML SYRINGE ONE ×2 (12:45→13:12)
[2025-05-31] MEDS ORDERED: SUGAMMADEX SODIUM 200 MG/2 ML VIAL ONE (13:15)
[2025-05-31] MEDS ORDERED: Metoprolol Tartrate 5 MG (5 mL) VIAL ONE (13:27)
[2025-05-31] MEDS ORDERED: fentaNYL PF 100 MCG/2 ML SYRINGE ONE (13:43)
[2025-05-31] MEDS ORDERED: HYDROmorphone 0.5 MG/0.5 ML SYRINGE ONE (13:43)
[2025-05-31] MEDS: NS 0.9% w/ 20 MEQ KCL 1,000 ML/1,000 ML BAG IV SCH (15:52)
[2025-05-31] MEDS: Sodium Ferric Gluconate 250 MG in Sodium Chloride 0.9% 250 ML 250 ML IVPB SCH (16:37)
[2025-06-01 05:41] LABS: Hematocrit 24.9 % (42.0-52.0); Hemoglobin 7.7 g/dL (14.0-18.0); Mean Corpuscular Hemoglobin 23.5 pg (27.0-31.0); Mean Corpuscular Volume 75.9 fL (78.0-98.0); Platelet Count 908 10x3/uL (130-400); Red Blood Cell (RBC) Count 3.28 mill/uL (4.70-6.10); White Blood Cell (WBC) Count 40.57 10x3/uL (4.8-10.8)
[2025-06-01 05:51] LABS: INR-International Normal Ratio 1.4; Prothrombin Time 16.8 sec (12.0-14.7)
[2025-06-01 05:52] LABS: PTT 44.0 sec (22.9-36.1)
[2025-06-01 06:11] LABS: ALT (SGPT) 9 U/L (Less than 45); AST (SGOT) 43 U/L (11-34); Albumin 2.2 g/dL (3.1-4.5); Alkaline Phosphatase 293 U/L (40-110); Anion Gap 17 mmol/L (10-20); BUN (Urea Nitrogen) 4 mg/dL (8.9-20.6); Bilirubin, Total 0.5 mg/dL (0.3-1.2); Calc. Creatinine Clearance 228 mL/min (70-130); Calcium 8.1 mg/dL (7.8-10.44); Carbon Dioxide 21 mmol/L (22-29); Chloride 108 mmol/L (98-107); Globulin 3.2 g/dL (2.4-3.5); Glucose 75 mg/dL (70-105); Potassium 3.5 mmol/L (3.5-5.1); Sodium 142 mmol/L (136-145)
[2025-06-01 06:13] LABS: Anisocytosis SLIGHT = 6-15 cells HPF (0-5); Microcytosis SLIGHT = 6-15 cells HPF (0-5); Platelet Adequacy Comment Platelets Increased; Polychromasia SLIGHT = 2-3 cells HPF (0-2); Target Cells SLIGHT = 2-5 cells HPF (0-1)
[2025-06-01] MEDS ORDERED: Lidocaine 1% PF 5 ML VIAL ONE (11:32)
[2025-06-01] MEDS ORDERED: Sodium Bicarbonate 2.5 MEQ/5 ML SDV ONE (11:32)
[2025-06-02 05:28] LABS: ALT (SGPT) 8 U/L (Less than 45); AST (SGOT) 25 U/L (11-34); Albumin 2.2 g/dL (3.1-4.5); Alkaline Phosphatase 255 U/L (40-110); Anion Gap 14 mmol/L (10-20); BUN (Urea Nitrogen) Less than 4 mg/dL (8.9-20.6); Bilirubin, Total 0.4 mg/dL (0.3-1.2); Calc. Creatinine Clearance 211 mL/min (70-130); Calcium 7.9 mg/dL (7.8-10.44); Carbon Dioxide 24 mmol/L (22-29); Chloride 108 mmol/L (98-107); Globulin 2.9 g/dL (2.4-3.5); Glucose 71 mg/dL (70-105); Potassium 3.7 mmol/L (3.5-5.1); Sodium 142 mmol/L (136-145)
[2025-06-02 05:42] LABS: Hematocrit 25.6 % (42.0-52.0); Hemoglobin 7.9 g/dL (14.0-18.0); Mean Corpuscular Hemoglobin 23.7 pg (27.0-31.0); Mean Corpuscular Volume 76.6 fL (78.0-98.0); Platelet Count 1105 10x3/uL (130-400); Red Blood Cell (RBC) Count 3.34 mill/uL (4.70-6.10); White Blood Cell (WBC) Count 32.82 10x3/uL (4.8-10.8)
[2025-06-02 06:07] LABS: Anisocytosis SLIGHT = 6-15 cells HPF (0-5); Microcytosis SLIGHT = 6-15 cells HPF (0-5); Platelet Adequacy Comment Platelets Increased; Polychromasia SLIGHT = 2-3 cells HPF (0-2); Smudge Cells 4.9 %; Target Cells SLIGHT = 2-5 cells HPF (0-1)
[2025-06-02] MEDS: Enoxaparin 40 MG (0.4 mL) SYRINGE SC SCH (20:21)
[2025-06-03 04:23] LABS: Hematocrit 24.2 % (42.0-52.0); Hemoglobin 7.4 g/dL (14.0-18.0); Mean Corpuscular Hemoglobin 23.7 pg (27.0-31.0); Mean Corpuscular Volume 77.6 fL (78.0-98.0); Platelet Count 1052 10x3/uL (130-400); Red Blood Cell (RBC) Count 3.12 mill/uL (4.70-6.10); White Blood Cell (WBC) Count 33.96 10x3/uL (4.8-10.8)
[2025-06-03 04:36] LABS: ALT (SGPT) 7 U/L (Less than 45); AST (SGOT) 31 U/L (11-34); Albumin 1.9 g/dL (3.1-4.5); Alkaline Phosphatase 226 U/L (40-110); Anion Gap 10 mmol/L (10-20); BUN (Urea Nitrogen) Less than 4 mg/dL (8.9-20.6); Bilirubin, Total 0.4 mg/dL (0.3-1.2); Calc. Creatinine Clearance 227 mL/min (70-130); Calcium 7.2 mg/dL (7.8-10.44); Carbon Dioxide 25 mmol/L (22-29); Chloride 110 mmol/L (98-107); Globulin 2.8 g/dL (2.4-3.5); Glucose 73 mg/dL (70-105); Potassium 3.4 mmol/L (3.5-5.1); Sodium 142 mmol/L (136-145)
[2025-06-03 04:38] LABS: Anisocytosis SLIGHT = 6-15 cells HPF (0-5); Microcytosis SLIGHT = 6-15 cells HPF (0-5); Platelet Adequacy Comment Platelets Increased; Polychromasia SLIGHT = 2-3 cells HPF (0-2); Target Cells SLIGHT = 2-5 cells HPF (0-1)
[2025-06-04 05:32] LABS: Hematocrit 26.7 % (42.0-52.0); Hemoglobin 8.1 g/dL (14.0-18.0); Mean Corpuscular Hemoglobin 23.7 pg (27.0-31.0); Mean Corpuscular Volume 78.1 fL (78.0-98.0); Platelet Count 1363 10x3/uL (130-400); Red Blood Cell (RBC) Count 3.42 mill/uL (4.70-6.10); White Blood Cell (WBC) Count 31.20 10x3/uL (4.8-10.8)
[2025-06-04 05:40] LABS: ALT (SGPT) 7 U/L (Less than 45); AST (SGOT) 29 U/L (11-34); Albumin 2.2 g/dL (3.1-4.5); Alkaline Phosphatase 250 U/L (40-110); Anion Gap 13 mmol/L (10-20); BUN (Urea Nitrogen) Less than 4 mg/dL (8.9-20.6); Bilirubin, Total 0.3 mg/dL (0.3-1.2); Calc. Creatinine Clearance 236 mL/min (70-130); Calcium 8.1 mg/dL (7.8-10.44); Carbon Dioxide 27 mmol/L (22-29); Chloride 109 mmol/L (98-107); Globulin 3.2 g/dL (2.4-3.5); Glucose 100 mg/dL (70-105); Potassium 3.8 mmol/L (3.5-5.1); Sodium 145 mmol/L (136-145)
[2025-06-04 06:00] LABS: Burr Cells SLIGHT = 2-5 cells HPF (0-1); Platelet Adequacy Comment Platelets Increased; Polychromasia SLIGHT = 2-3 cells HPF (0-2); Schistocytes SLIGHT = 2-5 cells HPF (0-1); Smudge Cells 11.5 %; Target Cells SLIGHT = 2-5 cells HPF (0-1)
[2025-06-05] MEDS: PNEUMOC 20-VAL CONJ-DIP CRM/PF 0.5 ML SYRINGE IM ONE (01:56)
[2025-06-05] MEDS: Mening Vac A,C,Y,W-135 Dip/PF (MENVEO) IM ONE (02:47)
[2025-06-05 05:28] LABS: Hematocrit 26.6 % (42.0-52.0); Hemoglobin 8.2 g/dL (14.0-18.0); Mean Corpuscular Hemoglobin 23.7 pg (27.0-31.0); Mean Corpuscular Volume 76.9 fL (78.0-98.0); Platelet Count 1535 10x3/uL (130-400); Red Blood Cell (RBC) Count 3.46 mill/uL (4.70-6.10); White Blood Cell (WBC) Count 35.88 10x3/uL (4.8-10.8)
[2025-06-05 05:45] LABS: ALT (SGPT) Less than 7 U/L (Less than 45); AST (SGOT) 29 U/L (11-34); Albumin 2.3 g/dL (3.1-4.5); Alkaline Phosphatase 257 U/L (40-110); Anion Gap 14 mmol/L (10-20); BUN (Urea Nitrogen) 5 mg/dL (8.9-20.6); Bilirubin, Total 0.3 mg/dL (0.3-1.2); Calc. Creatinine Clearance 208 mL/min (70-130); Calcium 8.2 mg/dL (7.8-10.44); Carbon Dioxide 28 mmol/L (22-29); Chloride 104 mmol/L (98-107); Globulin 3.2 g/dL (2.4-3.5); Glucose 84 mg/dL (70-105); Potassium 3.9 mmol/L (3.5-5.1); Sodium 142 mmol/L (136-145)
[2025-06-05 05:54] LABS: Anisocytosis SLIGHT = 6-15 cells HPF (0-5); Microcytosis SLIGHT = 6-15 cells HPF (0-5); Platelet Adequacy Comment Platelets Normal; Polychromasia SLIGHT = 2-3 cells HPF (0-2); Target Cells SLIGHT = 2-5 cells HPF (0-1)
[2025-06-05] MEDS: Aspirin 81 mg Enteric Coated Tablet PO SCH (09:37)
[2025-06-06 06:11] LABS: #Basophils 0.20 10x3/uL (0.0-0.2); #Eosinophils 0.18 10x3/uL (0.0-0.7); #Monocytes 3.00 10x3/uL (0.11-0.59); #Neutrophils 30.67 10x3/uL (1.40-6.50); %Basophils 0.5 % (0.0-1.0); %Eosinophils 0.5 % (0.0-10.0); %Lymphocytes 5.2 % (21.0-51.0); %Monocytes 7.8 % (0.0-10.0); %Neutrophils 79.9 % (42.0-75.0); Hematocrit 28.4 % (42.0-52.0); Hemoglobin 8.6 g/dL (14.0-18.0); Mean Corpuscular Hemoglobin 23.3 pg (27.0-31.0); Mean Corpuscular Volume 77.0 fL (78.0-98.0); Platelet Count 1505 10x3/uL (130-400); Red Blood Cell (RBC) Count 3.69 mill/uL (4.70-6.10); White Blood Cell (WBC) Count 38.40 10x3/uL (4.8-10.8)
[2025-06-06 06:12] LABS: ALT (SGPT) Less than 7 U/L (Less than 45); AST (SGOT) 36 U/L (11-34); Albumin 2.4 g/dL (3.1-4.5); Alkaline Phosphatase 266 U/L (40-110); Anion Gap 16 mmol/L (10-20); BUN (Urea Nitrogen) 7 mg/dL (8.9-20.6); Bilirubin, Total 0.3 mg/dL (0.3-1.2); Calc. Creatinine Clearance 188 mL/min (70-130); Calcium 8.2 mg/dL (7.8-10.44); Carbon Dioxide 28 mmol/L (22-29); Chloride 103 mmol/L (98-107); Globulin 3.3 g/dL (2.4-3.5); Glucose 85 mg/dL (70-105); Potassium 3.6 mmol/L (3.5-5.1); Sodium 143 mmol/L (136-145)
[2025-06-06] MEDS ORDERED: Lidocaine 1% w/Epinephrine 1:100K 20 ML VIAL IJ SCH (09:00)
[2025-06-06] MEDS: Aspirin 81 mg Enteric Coated Tablet PO SCH (09:24)
[2025-06-07 07:31] LABS: Hematocrit 28.8 % (42.0-52.0); Hemoglobin 8.5 g/dL (14.0-18.0); Mean Corpuscular Hemoglobin 23.5 pg (27.0-31.0); Mean Corpuscular Volume 79.8 fL (78.0-98.0); Platelet Count 1808 10x3/uL (130-400); Red Blood Cell (RBC) Count 3.61 mill/uL (4.70-6.10); White Blood Cell (WBC) Count 34.76 10x3/uL (4.8-10.8)
[2025-06-07 07:59] LABS: Anisocytosis MODERATE=16-30 cells HPF (0-5); Platelet Adequacy Comment Platelets Increased; Polychromasia MODERATE = 3-4 cells HPF (0-2); Schistocytes SLIGHT = 2-5 cells HPF (0-1)
[2025-06-08 05:34] LABS: Hematocrit 30.0 % (42.0-52.0); Hemoglobin 9.0 g/dL (14.0-18.0); Mean Corpuscular Hemoglobin 23.1 pg (27.0-31.0); Mean Corpuscular Volume 76.9 fL (78.0-98.0); Platelet Count 1772 10x3/uL (130-400); Red Blood Cell (RBC) Count 3.90 mill/uL (4.70-6.10); White Blood Cell (WBC) Count 26.23 10x3/uL (4.8-10.8)
[2025-06-08 05:57] LABS: Anisocytosis MODERATE=16-30 cells HPF (0-5); Microcytosis SLIGHT = 6-15 cells HPF (0-5); Platelet Adequacy Comment Platelets Increased; Polychromasia MODERATE = 3-4 cells HPF (0-2); Smudge Cells 6.0 %; Target Cells SLIGHT = 2-5 cells HPF (0-1)
[2025-06-08] MEDS: Lidocaine 4% Topical Sol 50 ML BOT TOP SCH (12:40)
[2025-06-08] MEDS: Megestrol Acetate 800 MG/20 ML UDCUP PO SCH (14:49)
[2025-06-09 05:33] LABS: Hematocrit 35.6 % (42.0-52.0); Hemoglobin 10.3 g/dL (14.0-18.0); Mean Corpuscular Hemoglobin 23.4 pg (27.0-31.0); Mean Corpuscular Volume 80.7 fL (78.0-98.0); Platelet Count 1636 10x3/uL (130-400); Red Blood Cell (RBC) Count 4.41 mill/uL (4.70-6.10); White Blood Cell (WBC) Count 32.06 10x3/uL (4.8-10.8)
[2025-06-09 05:41] LABS: ALT (SGPT) Less than 7 U/L (Less than 45); AST (SGOT) 30 U/L (11-34); Albumin 2.7 g/dL (3.1-4.5); Alkaline Phosphatase 299 U/L (40-110); Anion Gap 17 mmol/L (10-20); BUN (Urea Nitrogen) 4 mg/dL (8.9-20.6); Bilirubin, Total 0.3 mg/dL (0.3-1.2); Calc. Creatinine Clearance 212 mL/min (70-130); Calcium 9.0 mg/dL (7.8-10.44); Carbon Dioxide 21 mmol/L (22-29); Chloride 108 mmol/L (98-107); Globulin 3.8 g/dL (2.4-3.5); Glucose 96 mg/dL (70-105); Potassium 4.4 mmol/L (3.5-5.1); Sodium 142 mmol/L (136-145)
[2025-06-09 06:51] LABS: Anisocytosis MODERATE=16-30 cells HPF (0-5); Burr Cells SLIGHT = 2-5 cells HPF (0-1); Macrocytosis SLIGHT = 6-15 cells HPF (0-5); Microcytosis SLIGHT = 6-15 cells HPF (0-5); Platelet Adequacy Comment Platelets Increased; Poikilocytosis SLIGHT = 6-15 cells HPF (0-5); Polychromasia SLIGHT = 2-3 cells HPF (0-2); Smudge Cells 12.5 %
[2025-06-09] MEDS: Megestrol Acetate 800 MG/20 ML UDCUP PO SCH (09:07)
[2025-06-09 15:13] VITALS: BMI 22.8
[2025-06-10 06:01] LABS: Hematocrit 31.4 % (42.0-52.0); Hemoglobin 9.5 g/dL (14.0-18.0); Mean Corpuscular Hemoglobin 23.7 pg (27.0-31.0); Mean Corpuscular Volume 78.3 fL (78.0-98.0); Platelet Count 1781 10x3/uL (130-400); Red Blood Cell (RBC) Count 4.01 mill/uL (4.70-6.10); White Blood Cell (WBC) Count 25.11 10x3/uL (4.8-10.8)
[2025-06-10 06:28] LABS: Anisocytosis MODERATE=16-30 cells HPF (0-5); Microcytosis SLIGHT = 6-15 cells HPF (0-5); Platelet Adequacy Comment Platelets Increased; Polychromasia MODERATE = 3-4 cells HPF (0-2); Smudge Cells 4.9 %
[2025-06-10] MEDS: Ketorolac Tromethamine 30 MG (1 mL) VIAL IVP SCH (21:00)
[2025-06-11] MEDS: Ketorolac Tromethamine 30 MG (1 mL) VIAL IVP SCH (03:51)
[2025-06-11] MEDS: HYDROmorphone 0.5 MG/0.5 ML SYRINGE SLOW IVP SCH (06:16)
[2025-06-11 07:53] LABS: Hematocrit 33.1 % (42.0-52.0); Hemoglobin 10.3 g/dL (14.0-18.0); Mean Corpuscular Hemoglobin 24.0 pg (27.0-31.0); Mean Corpuscular Volume 77.0 fL (78.0-98.0); Platelet Count 1766 10x3/uL (130-400); Red Blood Cell (RBC) Count 4.30 mill/uL (4.70-6.10); White Blood Cell (WBC) Count 35.47 10x3/uL (4.8-10.8)
[2025-06-11 08:18] LABS: Anisocytosis MODERATE=16-30 cells HPF (0-5); Microcytosis SLIGHT = 6-15 cells HPF (0-5); Platelet Adequacy Comment Platelets Increased; Poikilocytosis MODERATE=16-30 cells HPF (0-5); Polychromasia SLIGHT = 2-3 cells HPF (0-2); Schistocytes MODERATE= 6-15 cells HPF (0-1); Smudge Cells 3.0 %
[2025-06-11] MEDS ORDERED: Iopamidol-370 76% 500 ML MDV (1 ML CHARGE) ONE (09:56)
[2025-06-11 16:23] VITALS: BP 145/85; TEMP 97.5
== END 2025-06-11 17:20 | disposition hospice, inpatient (51) | DRG 820 ==
LOC: ERS 00:42 → EEVIPCON 02:13 → SURG B 02:13 → MSONC 05-14 18:16 → IMCU/EMU 05-19 01:50 → CCU 05-19 10:20 → IMCU/EMU 05-29 06:58 → T4-A 05-29 17:15
PROVIDERS: ADMIT Internal Medicine; ATTEND Internal Medicine
PROC: 3E03329 Introduction of Other Anti-infective into Peripheral Vein, Percutaneous Approach (ICD-10-PCS; 2025-05-11)
PROC: 30233N1 Transfusion of Nonautologous Red Blood Cells into Peripheral Vein, Percutaneous Approach (ICD-10-PCS; 2025-05-12)
PROC: 07TP0ZZ Resection of Spleen, Open Approach (ICD-10-PCS; principal; 2025-05-19)
PROC: 0FB20ZZ Excision of Left Lobe Liver, Open Approach (ICD-10-PCS; 2025-05-19)
PROC: 0DB60ZZ Excision of Stomach, Open Approach (ICD-10-PCS; 2025-05-19)
PROC: 0FBG0ZZ Excision of Pancreas, Open Approach (ICD-10-PCS; 2025-05-19)
PROC: 0W9G0ZZ Drainage of Peritoneal Cavity, Open Approach (ICD-10-PCS; 2025-05-19)
PROC: 0DBW0ZZ Excision of Peritoneum, Open Approach (ICD-10-PCS; 2025-05-19)
PROC: 6A550Z2 Pheresis of Platelets, Single (ICD-10-PCS; 2025-05-19)
PROC: 3E04329 Introduction of Other Anti-infective into Central Vein, Percutaneous Approach (ICD-10-PCS; 2025-05-19)
PROC: 3E033XZ Introduction of Vasopressor into Peripheral Vein, Percutaneous Approach (ICD-10-PCS; 2025-05-19)
PROC: 3E043XZ Introduction of Vasopressor into Central Vein, Percutaneous Approach (ICD-10-PCS; 2025-05-19)
PROC: 0T9B70Z Drainage of Bladder with Drainage Device, Via Natural or Artificial Opening (ICD-10-PCS; 2025-05-19)
PROC: 0D9670Z Drainage of Stomach with Drainage Device, Via Natural or Artificial Opening (ICD-10-PCS; 2025-05-19)
PROC: 5A1955Z Respiratory Ventilation, Greater than 96 Consecutive Hours (ICD-10-PCS; 2025-05-19)
PROC: 0BH17EZ Insertion of Endotracheal Airway into Trachea, Via Natural or Artificial Opening (ICD-10-PCS; 2025-05-19)
PROC: 05HN33Z Insertion of Infusion Device into Left Internal Jugular Vein, Percutaneous Approach (ICD-10-PCS; 2025-05-19)
PROC: B514ZZA Fluoroscopy of Left Jugular Veins, Guidance (ICD-10-PCS; 2025-05-19)
PROC: 0DHA0UZ Insertion of Feeding Device into Jejunum, Open Approach (ICD-10-PCS; 2025-05-20)
PROC: 3E0H76Z Introduction of Nutritional Substance into Lower GI, Via Natural or Artificial Opening (ICD-10-PCS; 2025-05-20)
PROC: 03HY32Z Insertion of Monitoring Device into Upper Artery, Percutaneous Approach (ICD-10-PCS; 2025-05-20)
PROC: 4A133B1 Monitoring of Arterial Pressure, Peripheral, Percutaneous Approach (ICD-10-PCS; 2025-05-20)
PROC: 4A133J1 Monitoring of Arterial Pulse, Peripheral, Percutaneous Approach (ICD-10-PCS; 2025-05-20)
PROC: 4A133R1 Monitoring of Arterial Saturation, Peripheral, Percutaneous Approach (ICD-10-PCS; 2025-05-22)
PROC: 30233J1 Transfusion of Nonautologous Serum Albumin into Peripheral Vein, Percutaneous Approach (ICD-10-PCS; 2025-05-23)
PROC: 3E10X8Z Irrigation of Skin and Mucous Membranes using Irrigating Substance (ICD-10-PCS; 2025-05-31)
PROC: 0W9G30Z Drainage of Peritoneal Cavity with Drainage Device, Percutaneous Approach (ICD-10-PCS; 2025-06-01)
DX: C83.398 Diffuse large B-cell lymphoma of other extranodal and solid organ sites (principal); A41.9 Sepsis, unspecified organism; K25.5 Chronic or unspecified gastric ulcer with perforation; K65.1 Peritoneal abscess; J96.01 Acute respiratory failure with hypoxia; R65.21 Severe sepsis with septic shock; J69.0 Pneumonitis due to inhalation of food and vomit; D61.810 Antineoplastic chemotherapy induced pancytopenia; E87.20 Acidosis, unspecified; D62 Acute posthemorrhagic anemia; E46 Unspecified protein-calorie malnutrition; K56.609 Unspecified intestinal obstruction, unspecified as to partial versus complete obstruction; Z51.5 Encounter for palliative care; Z66 Do not resuscitate; E87.6 Hypokalemia; F31.9 Bipolar disorder, unspecified; G40.909 Epilepsy, unspecified, not intractable, without status epilepticus; D63.0 Anemia in neoplastic disease; D70.9 Neutropenia, unspecified; F10.90 Alcohol use, unspecified, uncomplicated; F15.90 Other stimulant use, unspecified, uncomplicated; F12.10 Cannabis abuse, uncomplicated; K31.89 Other diseases of stomach and duodenum; D73.5 Infarction of spleen; K76.89 Other specified diseases of liver; F20.9 Schizophrenia, unspecified; Z72.0 Tobacco use; Z98.890 Other specified postprocedural states; Z79.899 Other long term (current) drug therapy; Z88.8 Allergy status to other drugs, medicaments and biological substances; Z91.148 Patient's other noncompliance with medication regimen for other reason; Z68.22 Body mass index [BMI] 22.0-22.9, adult
CPT/HCPCS: 36415; 36416; 36430; 36600; 49406; 71045; 71260; 74018; 74177; 77002; 80048; 80053; 80202; 80306; 80307; 81001; 82247; 82550; 82728; 82805; 83540; 83550; 83605; 83615; 83690; 83735; 83930; 84100; 84134; 84145; 84300; 84484; 84550; 85025; 85610; 85730; 86141; 86850; 86900; 86901; 87040; 87070; 87077; 87086; 87205; 87389; 87428; 88305; 88307; 88341; 88342; 88360; 90471; 90620; 90648; 90677; 90734; 93005; 93010; 94002; 94003; 96365; 96375; 97139; 99152; 99153; A4314; A4649; C1729; C1751; C1769; G0009; J0295; J0613; J0692; J0694; J0696; J1100; J1171; J1200; J1447; J1453; J1644; J1650; J1885; J1956; J2060; J2185; J2248; J2250; J2270; J2405; J2469; J2470; J2543; J2704; J2916; J3010; J3230; J3373; J3375; J3430; J3475; J3480; J3490; J7030; J7042; J7050; J7070; J7120; J7999; J9045; J9181; J9208; J9209; P9016; P9035; P9045; P9047; Q5123; Q5130; Q9963; Q9967

== ENCOUNTER 2025-06-11 17:28 | Inpatient (IN) | payer OTHER ==
[2025-06-11] MEDS ORDERED: Bisacodyl 10 MG SUPP PR PRN (17:52)
[2025-06-11] MEDS: Morphine 50 MG in Sodium Chloride 0.9% 45 ML IV SCH (19:41)
[2025-06-11] MEDS: diphenhydrAMINE 50 MG/ML VIAL IVP PRN (20:34)
[2025-06-12] MEDS: diphenhydrAMINE 50 MG/ML VIAL IVP PRN (17:59)
[2025-06-13] MEDS: Ondansetron PF 4 MG/2 ML Vial ONE (09:25)
[2025-06-13] MEDS: Ondansetron PF 4 MG/2 ML Vial IVP PRN (19:15)
[2025-06-13] MEDS: Scopolamine 1 mg/72 hour Patch TOP PRN (21:53)
[2025-06-14] MEDS: Ondansetron PF 4 MG/2 ML Vial IVP PRN (01:19)
[2025-06-14] MEDS: Glycopyrrolate 0.4 MG/ 2 ML VIAL SLOW IVP PRN (10:36)
[2025-06-14] MEDS: Pantoprazole 40 MG VIAL IVP SCH (12:23)
[2025-06-15] MEDS: Pantoprazole 40 MG VIAL IVP SCH (08:09)
[2025-06-20] MEDS: Prochlorperazine 10 MG/2 ML VIAL SLOW IVP PRN (12:13)
[2025-06-27] MEDS ORDERED: Haloperidol 1 MG TAB PER TUBE PRN (12:57)
[2025-06-27] MEDS: Dexamethasone 4 MG TAB PER TUBE SCH (14:57)
[2025-06-27] MEDS: Haloperidol 1 MG TAB PER TUBE SCH (17:22)
[2025-06-27] MEDS: Famotidine 20 MG TAB PER TUBE SCH (21:28)
[2025-06-27] MEDS: Scopolamine 1 mg/72 hour Patch TOP PRN (21:29)
[2025-06-28] MEDS: diphenhydrAMINE 25 MG CAP PER TUBE PRN (08:43)
[2025-06-29 08:44] VITALS: BP 120/79; TEMP 98.7
== END 2025-06-29 13:34 | disposition home or self-care (01) | DRG 951 ==
LOC: T4-A 17:28
PROVIDERS: ADMIT Internal Medicine Hospice and Palliative Medicine; ATTEND Internal Medicine Hospice and Palliative Medicine
DX: Z51.5 Encounter for palliative care (principal); J69.0 Pneumonitis due to inhalation of food and vomit; K65.1 Peritoneal abscess; K55 Vascular disorders of intestine; C85.10 Unspecified B-cell lymphoma, unspecified site; K56.609 Unspecified intestinal obstruction, unspecified as to partial versus complete obstruction; Z98.890 Other specified postprocedural states; Z90.81 Acquired absence of spleen; Z90.49 Acquired absence of other specified parts of digestive tract; Z92.21 Personal history of antineoplastic chemotherapy; F39 Unspecified mood [affective] disorder; F41.9 Anxiety disorder, unspecified; R11.2 Nausea with vomiting, unspecified; R06.6 Hiccough
CPT/HCPCS: 97139; J0780; J1100; J1200; J1630; J2060; J2270; J2405; J2470; J2550; J8540; Q0162